=== PATIENT | female | born 1940 | race Asian ===

== ENCOUNTER 2018-03-20 05:09 | Inpatient (IN) | payer OTHER ==
[2018-03-20] MEDS ORDERED: SODIUM CHLORIDE 1,000 ML IV STA (06:05)
[2018-03-20] MEDS ORDERED: PANTOPRAZOLE SODIUM 40 MG VIAL IVPUSH ONE (06:06)
--- NOTE | 2018-03-20 06:14 | PDOC ---
Attending Attestation - Resident Resident Name: Steven Remy - ED Attending Attestation I have performed the following: I have examined & evaluated the patient, The case was reviewed & discussed with the resident, I agree w/resident's findings & plan - HPI HPI: 03/20/18 07:07 Pt comes with dark stools a couple days and epigastric pain x 2 weeks or more; NSAIDs, asa, losartan and statin. Pt is worried because she has decreased appetite and she feels weak. PMD Dr. Macdonald ([facility]) - Physicial Exam PE: 03/20/18 07:08 Agree with exam of resident. Pt is warm to touch, but not febrile. Abd NT ND. no flank pain. Pt appears pale. Neurologically intact. - Medical Decision Making 03/20/18 07:09 Pt will be signed out to the day team. She will be admitted for inpatient endoscopy; as she lives alone and cannot go home with weakness, GI bleed and inability to tolerate food.
[2018-03-20] MEDS ORDERED: PANTOPRAZOLE SODIUM 40 MG/100 ML BAG IVPB ONE (06:18)
--- NOTE | 2018-03-20 06:22 | PDOC ---
History of Present Illness - General Stated Complaint: BLOOD IN STOOL Time Seen by Provider: 03/20/18 05:58 History Source: Patient Exam Limitations: No Limitations - History of Present Illness Initial Comments: 03/20/18 06:18 Patient is a 77F with history of htn and osteoarthritis here today complaining of two days of dark tarry stools that she is concerned is a GI bleed. Patient states that she's having dark tarry stools. Takes meloxicam once or twice per day for OA. Patient states that she has had associated epigastric abdominal pain. Denies fevers, chills, nausea, vomiting. Endorses feeling weak, diaphoretic, and dizzy. Denies chest pain, endorses shortness of breath. Past History - Past Medical History Allergies/Adverse Reactions: Allergies Allergy/AdvReac Type Severity Reaction Status Date / Time No Known Allergies Allergy Verified 03/20/18 06:25 Home Medications: Ambulatory Orders Acetaminophen 325 mg PO PRN PRN 03/20/18 Aspirin [ASA -] 81 mg PO DAILY 03/20/18 Losartan Potassium 50 mg PO DAILY 03/20/18 Meloxicam 7.5 mg PO DAILY PRN 03/20/18 Rosuvastatin Calcium [Crestor] 5 mg PO DAILY 03/20/18 Review of Systems - Review of Systems Comments:: 03/20/18 06:19 GENERAL/CONSTITUTIONAL: No fever or chills. +weakness. HEAD, EYES, EARS, NOSE AND THROAT: No change in vision. No sore throat. CARDIOVASCULAR: No chest pain +shortness of breath RESPIRATORY: No cough, wheezing, or hemoptysis. GASTROINTESTINAL: No nausea, vomiting, +diarrhea GENITOURINARY: No dysuria, frequency, or change in urination. MUSCULOSKELETAL: No neck or back pain. SKIN: No rash NEUROLOGIC: No headache, vertigo, loss of consciousness, or change in strength/ sensation. ENDOCRINE: No increased thirst. No abnormal weight change HEMATOLOGIC/LYMPHATIC: No anemia, easy bleeding, or history of blood clots. ALLERGIC/IMMUNOLOGIC: No hives or skin allergy. *Physical Exam - Physical Exam Comments: 03/20/18 06:20 GENERAL: Awake, alert, and fully oriented, in no acute distress RECTAL: Normal tone, dark stool concerning for melena HEAD: No signs of trauma, normocephalic, atraumatic EYES: PERRLA, EOMI, sclera anicteric, conjunctiva clear ENT: Auricles normal inspection, hearing grossly normal, nares patent, oropharynx clear without exudates. Moist mucosa NECK: Normal ROM, supple, no lymphadenopathy, JVD, or masses LUNGS: No distress, speaks full sentences, clear to auscultation bilaterally HEART: Regular rate and rhythm, normal S1 and S2, no murmurs, rubs or gallops, peripheral pulses normal and equal bilaterally. ABDOMEN: Soft, nontender, normoactive bowel sounds. No guarding, no rebound. No masses EXTREMITIES: Normal inspection, Normal range of motion, no edema. No clubbing or cyanosis. NEUROLOGICAL: Cranial nerves II through XII grossly intact. Normal speech, no focal sensorimotor deficits SKIN: Warm, Dry, normal turgor, no rashes or lesions noted. ED Treatment Course - LABORATORY CBC & Chemistry Diagram: 03/22/18 06:00 03/22/18 06:00 - RADIOLOGY Radiology Studies Ordered: Category Date Time Status CHEST X-RAY PORTABLE* [RAD] Stat Radiology 03/20/18 06:06 Ordered Medical Decision Making - Medical Decision Making 03/20/18 06:20 Patient is 77F here today with likely GI bleed, likely 2/2 NSAID use. DDx includes, but is not limited to: anemia, gi bleed, acs, pneumonia. Will workup with cbc, cmp, pt/inr, type and screen. Will treat empirically with protonix and fluids. 03/20/18 06:56 Stool for occult blood positive. Labs drawn, protonix and fluids given. Pending labs, patient will require admission for GI bleed. Signed out to oncoming resident. *DC/Admit/Observation/Transfer Diagnosis at time of Disposition: GI bleed - Discharge Dispostion Condition at time of disposition: Stable - Referrals - Patient Instructions - Post Discharge Activity
[2018-03-20 06:55] LABS: BASO % 0.2 % (0-2.0); EOS % 0.1 % (0-4.5); HEMATOCRIT 30.3 % (32.4-45.2); HEMOGLOBIN 10.4 GM/dL (10.7-15.3); LYMPH % 4.8 % (8-40); MCH 31.5 pg (25.7-33.7); MCHC 34.1 g/dl (32.0-36.0); MEAN CELL VOLUME 92.4 fl (80-96); MEAN PLT VOLUME 7.6 fl (7.5-11.1); MONO % 3.5 % (3.8-10.2); NEUT % 91.4 % (42.8-82.8); PLATELET COUNT 251 K/MM3 (134-434); RBC 3.28 M/mm3 (3.60-5.2); RDW 12.7 % (11.6-15.6); WHITE BLOOD COUNT 13.1 K/mm3 (4.0-10.0)
[2018-03-20 07:12] LABS: INR 1.12 (0.83-1.09); PROTHROMBIN TIME (PATIENT) 13.2 SEC (9.7-13.0)
--- NOTE | 2018-03-20 07:15 | PDOC ---
*Physical Exam - Vital Signs Last Vital Signs Temp Pulse Resp BP Pulse Ox 97.6 F 99 H 17 161/56 L 99 03/20/18 05:09 03/20/18 05:09 03/20/18 05:09 03/20/18 05:09 03/20/18 05:09 - Physical Exam Comments: 03/20/18 14:34 GENERAL: Awake, alert, and fully oriented, in no acute distress HEAD: No signs of trauma, normocephalic, atraumatic EYES: EOMI, sclera anicteric, conjunctiva clear ENT: oropharynx clear without exudates. Moist mucosa NECK: Normal ROM, supple LUNGS: No distress, speaks full sentences, clear to auscultation bilaterally HEART: Regular rate and rhythm, normal S1 and S2, no murmurs, rubs or gallops, peripheral pulses normal and equal bilaterally. ABDOMEN: Soft, nontender, normoactive bowel sounds. No guarding, no rebound. No masses EXTREMITIES : Normal inspection, Normal range of motion, no edema. No clubbing or cyanosis. NEUROLOGICAL: Cranial nerves II through XII grossly intact. Normal speech, baseline gait w/ walker, no focal sensorimotor deficits SKIN: Warm, Dry, normal turgor, no rashes or lesions noted ED Treatment Course - LABORATORY CBC & Chemistry Diagram: 03/20/18 12:12 03/20/18 06:35 - ADDITIONAL ORDERS Additional order review: Laboratory Results 03/20/18 03/20/18 06:35 06:10 PT with INR 13.20 H INR 1.12 H Stool Occult Blood Positive 03/20/18 06:35 RBC 3.28 L MCV 92.4 MCHC 34.1 RDW 12.7 MPV 7.6 Neutrophils % 91.4 H D Lymphocytes % 4.8 L D Monocytes % 3.5 L Eosinophils % 0.1 D Basophils % 0.2 - Medications Given in the ED: ED Medications Discontinued Medications Generic Name Dose Route Start Last Admin Trade Name Freq PRN Reason Stop Dose Admin Sodium Chloride 1,000 mls @ 1,000 mls/hr 03/20/18 06:05 03/20/18 06:30 Normal Saline - IV 03/20/18 07:04 1,000 mls/hr ASDIR STA Administration Pantoprazole Sodium 40 mg 03/20/18 06:06 03/20/18 06:30 Protonix Iv IVPUSH 03/20/18 06:07 40 mg ONCE ONE Administration Medical Decision Making - Medical Decision Making 03/20/18 07:14 Patient signed out by resident Dr. Remy. In short patient is a 77 year old complaining of dark tarry stools with epigastric abdominal pain, with positive stool heme occult. ED Course Hb 10.4 Baseline Hb is 13 JAC, elevated BUN, Cr, prerenal. Patient will need admission for EGD and observation. 03/20/18 09:27 PCP contacted would like Pia, D51/[id number], Abd+Pelvis CT pending repeat cbc Hb 9.8 continue to trend Patient admitted to medicine for further workup and evaluation *DC/Admit/Observation/Transfer Diagnosis at time of Disposition: GI bleed - Discharge Dispostion Condition at time of disposition: Stable Decision to Admit order: Yes - Referrals - Patient Instructions - Post Discharge Activity
[2018-03-20 07:24] LABS: ALBUMIN 3.2 g/dl (3.4-5.0); ALK PHOS 73 U/L (45-117); ANION GAP 12 MMOL/L (8-16); BILIRUBIN,TOTAL 0.2 mg/dL (0.2-1); BLOOD UREA NITROGEN 66 mg/dL (7-18); CALCIUM 8.2 mg/dL (8.5-10.1); CHLORIDE 101 mmol/L (98-107); CO2 21 mmol/L (21-32); CREATININE 1.1 mg/dL (0.55-1.3); GLUCOSE,RANDOM 118 mg/dL (74-106); MAGNESIUM 2.1 mg/dL (1.8-2.4); POTASSIUM 4.6 mmol/L (3.5-5.1); SGOT/AST 12 U/L (15-37); SGPT/ALT 18 U/L (13-61); SODIUM 134 mmol/L (136-145); TOT PROT 6.2 g/dl (6.4-8.2)
[2018-03-20 12:00] LABS: ANISOCYTOSIS 0; MACROCYTOSIS 0; OVALOCYTE 1+; PLATELET ESTIMATE NORMAL
[2018-03-20] MEDS ORDERED: SODIUM CHLORIDE 1,000 ML IV SCH (12:30)
--- NOTE | 2018-03-20 12:38 | EKG ---
Test Reason : Blood Pressure : / mmHG Vent. Rate : 098 BPM Atrial Rate : 098 BPM P-R Int : 174 ms QRS Dur : 090 ms QT Int : 368 ms P-R-T Axes : 054 006 036 degrees QTc Int : 469 ms NORMAL SINUS RHYTHM LEFT ATRIAL ENLARGEMENT POSSIBLE ANTERIOR INFARCT , AGE UNDETERMINED ABNORMAL ECG WHEN COMPARED WITH ECG OF 04-JUL-2011 13:25, QT HAS LENGTHENED Confirmed by MD STEVEN, GRACE ([id number]) on 03/20/2018 12:38:29 PM Referred By: Confirmed By:GRACE HARRIS MD
[2018-03-20 12:46] LABS: BASO % 0.2 % (0-2.0); EOS % 0.1 % (0-4.5); HEMATOCRIT 28.4 % (32.4-45.2); HEMOGLOBIN 9.8 GM/dL (10.7-15.3); LYMPH % 13.2 % (8-40); MCH 31.7 pg (25.7-33.7); MCHC 34.5 g/dl (32.0-36.0); MONO % 5.4 % (3.8-10.2); NEUT % 81.1 % (42.8-82.8); PLATELET COUNT 253 K/MM3 (134-434); RBC 3.09 M/mm3 (3.60-5.2); RDW 12.6 % (11.6-15.6); WHITE BLOOD COUNT 11.8 K/mm3 (4.0-10.0)
--- NOTE | 2018-03-20 15:42 | HP ---
Admitting History and Physical - Admission Chief Complaint: Abdominal pain/Tarry Stool History of Present Illness: 77F with history of HTN, OA, Back pain,HLD,Gout, Borderline Obesity,B/L Hearing Loss here today complaining of two days of dark tarry stools that she is concerned is a GI bleed. Patient states that she's having dark tarry stools. Takes meloxicam once or twice per day for OA. Patient states that she has had associated epigastric abdominal pain. Denies fevers, chills, nausea, vomiting. Endorses feeling weak, diaphoretic, and dizzy. Denies chest pain, endorses shortness of breath. History Source: Patient - Past Medical History Cardiovascular: Yes: CAD Gastrointestinal: Yes: Diverticulosis, GI Bleed - Smoking History Smoking history: Never smoked Have you smoked in the past 12 months: No - Alcohol/Substance Use Hx Alcohol Use: No Home Medications - Allergies Allergies/Adverse Reactions: Allergies Allergy/AdvReac Type Severity Reaction Status Date / Time No Known Allergies Allergy Verified 03/20/18 06:25 - Home Medications Home Medications: Ambulatory Orders Acetaminophen 325 mg PO PRN PRN 03/20/18 Aspirin [ASA -] 81 mg PO DAILY 03/20/18 Losartan Potassium 50 mg PO DAILY 03/20/18 Meloxicam 7.5 mg PO DAILY PRN 03/20/18 Rosuvastatin Calcium [Crestor] 5 mg PO DAILY 03/20/18 Review of Systems - Review of Systems Neck: reports: No Symptoms Cardiovascular: reports: No Symptoms Respiratory: reports: No Symptoms Gastrointestinal: reports: Abdominal Pain, Rectal Bleeding Musculoskeletal: reports: Back Pain Neurological: reports: Unsteady Gait Psychiatric: reports: No Symptoms Physical Examination Vital Signs: Vital Signs Temperature 98.1 F 03/20/18 15:00 Pulse Rate 100 H 03/20/18 15:00 Respiratory Rate 18 03/20/18 15:00 Blood Pressure 145/63 03/20/18 15:00 O2 Sat by Pulse Oximetry (%) 99 03/20/18 15:00 Constitutional: Yes: Anxious Eyes: Yes: Conjunctiva Clear, EOM Intact HENT: Yes: Atraumatic, Normocephalic Neck: Yes: Supple, Trachea Midline Cardiovascular: Yes: Regular Rate and Rhythm, S1, S2 Respiratory: Yes: Regular, CTA Bilaterally Gastrointestinal: Yes: Normal Bowel Sounds, Soft Musculoskeletal: Yes: Back Pain Edema: No Labs: CBC, BMP 03/20/18 12:12 03/20/18 06:35 Problem List - Problems (1) HTN (hypertension) Code(s): I10 - ESSENTIAL (PRIMARY) HYPERTENSION (2) HLD (hyperlipidemia) Code(s): E78.5 - HYPERLIPIDEMIA, UNSPECIFIED (3) Back pain Code(s): M54.9 - DORSALGIA, UNSPECIFIED (4) Bilateral hearing loss Code(s): H91.93 - UNSPECIFIED HEARING LOSS, BILATERAL (5) GI bleed Code(s): K92.2 - GASTROINTESTINAL HEMORRHAGE, UNSPECIFIED (6) Renal failure, acute Code(s): N17.9 - ACUTE KIDNEY FAILURE, UNSPECIFIED (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 Code(s): I25.2 - OLD MYOCARDIAL INFARCTION (8) Troponin level elevated Code(s): R74.8 - ABNORMAL LEVELS OF OTHER SERUM ENZYMES Assessment/Plan (1) HTN (hypertension) Code(s): I10 - ESSENTIAL (PRIMARY) HYPERTENSION (2) HLD (hyperlipidemia) Code(s): E78.5 - HYPERLIPIDEMIA, UNSPECIFIED (3) Back pain Code(s): M54.9 - DORSALGIA, UNSPECIFIED (4) Bilateral hearing loss Code(s): H91.93 - UNSPECIFIED HEARING LOSS, BILATERAL (5) GI bleed Code(s): K92.2 - GASTROINTESTINAL HEMORRHAGE, UNSPECIFIED (6) Renal failure, acute Code(s): N17.9 - ACUTE KIDNEY FAILURE, UNSPECIFIED (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
[2018-03-20] MEDS: D5-1/2NS+10 MEQ KCL - 10 MEQ/1,000 ML INFUS.BAG IV SCH (16:51)
[2018-03-20 18:47] LABS: BASO % 0.3 % (0-2.0); EOS % 0.4 % (0-4.5); HEMATOCRIT 26.5 % (32.4-45.2); HEMOGLOBIN 9.1 GM/dL (10.7-15.3); LYMPH % 10.3 % (8-40); MCH 31.8 pg (25.7-33.7); MCHC 34.5 g/dl (32.0-36.0); MEAN CELL VOLUME 92.4 fl (80-96); MEAN PLT VOLUME 7.3 fl (7.5-11.1); MONO % 6.5 % (3.8-10.2); NEUT % 82.5 % (42.8-82.8); PLATELET COUNT 230 K/MM3 (134-434); RBC 2.87 M/mm3 (3.60-5.2); RDW 12.6 % (11.6-15.6); WHITE BLOOD COUNT 11.7 K/mm3 (4.0-10.0)
[2018-03-21] MEDS ORDERED: PANTOPRAZOLE SODIUM 40 MG/100 ML BAG IVPB ONE (00:01)
[2018-03-21] MEDS ORDERED: PANTOPRAZOLE SODIUM 40 MG VIAL ONE ×2 (01:33→10:06)
[2018-03-21] MEDS: ROSUVASTATIN CA 5 MG TABLET (FP) PO SCH ×2 (01:37→21:10)
[2018-03-21] MEDS: PANTOPRAZOLE SODIUM 40 MG VIAL IVPUSH SCH ×3 (01:37→21:10)
[2018-03-21] MEDS: metoPROLOL SUCCINATE 25 MG TAB.SR.24H (FP) PO SCH ×2 (06:00→10:11)
[2018-03-21 06:27] LABS: BASO % 0.2 % (0-2.0); EOS % 0.3 % (0-4.5); HEMATOCRIT 27.1 % (32.4-45.2); HEMOGLOBIN 8.7 GM/dL (10.7-15.3); LYMPH % 15.1 % (8-40); MCH 30.2 pg (25.7-33.7); MCHC 32.1 g/dl (32.0-36.0); MEAN CELL VOLUME 94.1 fl (80-96); MEAN PLT VOLUME 7.6 fl (7.5-11.1); MONO % 6.2 % (3.8-10.2); NEUT % 78.2 % (42.8-82.8); PLATELET COUNT 215 K/MM3 (134-434); RBC 2.88 M/mm3 (3.60-5.2); RDW 12.8 % (11.6-15.6); WHITE BLOOD COUNT 11.7 K/mm3 (4.0-10.0)
[2018-03-21 06:44] LABS: ANION GAP 8 MMOL/L (8-16); BLOOD UREA NITROGEN 36 mg/dL (7-18); CALCIUM 8.3 mg/dL (8.5-10.1); CHLORIDE 110 mmol/L (98-107); CO2 20 mmol/L (21-32); GLUCOSE,RANDOM 114 mg/dL (74-106); POTASSIUM 4.2 mmol/L (3.5-5.1); SODIUM 138 mmol/L (136-145)
--- NOTE | 2018-03-21 11:41 | CONSULT ---
Consult Consult Specialty:: Cardiology Referred by:: ED Reason for Consultation:: (+) troponin - History of Present Illness Chief Complaint: Dark stool History of Present Illness: 77 yo female CV risk factors of HTN and HPL Presented to ED with dark tarry stools found to be guiac (+) Taking Meloxicam for the past 2 months for left hip pain No prior CV history, no TX or known CAD Found to have (+) low level troponin with Hgb 8.7 (10.4) Currently she denies any CV complaints, no chest pain, tightness, dyspnea, dizziness. Started on PPI - History Source History Provided By: Patient Limitations to Obtaining History: No Limitations - Past Medical History Cardio/Vascular: Yes: CAD Gastrointestinal: Yes: Diverticulosis, GI Bleed - Alcohol/Substance Use Hx Alcohol Use: No - Smoking History Smoking history: Never smoked Have you smoked in the past 12 months: No Home Medications - Allergies Allergies/Adverse Reactions: Allergies Allergy/AdvReac Type Severity Reaction Status Date / Time No Known Allergies Allergy Verified 03/20/18 06:25 - Home Medications Home Medications: Ambulatory Orders Acetaminophen 325 mg PO PRN PRN 03/20/18 Aspirin [ASA -] 81 mg PO DAILY 03/20/18 Losartan Potassium 50 mg PO DAILY 03/20/18 Meloxicam 7.5 mg PO DAILY PRN 03/20/18 Rosuvastatin Calcium [Crestor] 5 mg PO DAILY 03/20/18 Family Disease History - Family Disease History Family History: Unremarkable Review of Systems - Review of Systems Constitutional: reports: No Symptoms Eyes: reports: No Symptoms HENT: reports: No Symptoms Neck: reports: No Symptoms Cardiovascular: reports: No Symptoms Respiratory: reports: No Symptoms Gastrointestinal: reports: Abdominal Pain Musculoskeletal: reports: No Symptoms, Muscle Weakness Neurological: reports: No Symptoms Physical Exam Vital Signs: Vital Signs Temperature 98.2 F 03/21/18 05:30 Pulse Rate 78 03/21/18 10:00 Respiratory Rate 16 03/21/18 10:00 Blood Pressure 135/69 03/21/18 10:00 O2 Sat by Pulse Oximetry (%) 99 03/21/18 10:00 Constitutional: Yes: Well Nourished, No Distress Eyes: Yes: WNL HENT: Yes: WNL Neck: Yes: WNL Cardiovascular: Yes: WNL, Regular Rate and Rhythm Respiratory: Yes: CTA Bilaterally Gastrointestinal: Yes: Normal Bowel Sounds Musculoskeletal: Yes: WNL Extremities: Yes: WNL Edema: No Labs: CBC, BMP 03/21/18 05:30 03/21/18 05:30 Imaging - Results Cat Scan: Report Reviewed (Diverticulosis) EKG: Image Reviewed (ECG on 03/20/2018 at 16:53 sinus tach at 111. No ischemic changes noted.) Assessment/Plan 77 yo F with HTN, HPL and (+) troponin in the setting of GI bleeding. 1) (+) troponin -Low level trend 0.08 to 0.13 not consistent with ACS, more consistent with Type II TX (demand related) in the setting of probable GI bleeding while on NSAIDS. Asymptomatic from CV perspective. -Would follow serial and transfuse as clinically indicated, Hgb only 8.7 now -Hold Meloxicam as likely cuplprit here, OK to continue Asa 81mg -No indication for further anticoagulation in setting of Type II TX and GI bleeding -Continue metoprolol and statin -She is stable and optimized from CV perspective to undergo GI eval (EGD/Colon) 2) HTN -Continue Metoprolol 3) HPL -Continue Crestor
--- NOTE | 2018-03-21 13:14 | PN ---
Progress Note, Physician Chief Complaint: Pt is having Drop In Hb Called Dr chavarria service GI service Transfuse One Unit Of PRBC Pt is clesred for EGD and colonoscopy History of Present Illness: Pt having Drop in Hb/Hct One unit of PRBC today spoke with Dr Herve chawla for EGD in AM - Current Medication List Current Medications: Active Medications Potassium Chloride/Dextrose/Sod Cl (D5-1/2ns+10 Meq Kcl -) 10 meq in 1,000 mls @ 60 mls/hr IV ASDIR [facility] Last Admin: 03/20/18 16:51 Dose: 60 mls/hr Metoprolol Succinate (Toprol Xl -) 25 mg PO DAILY [facility] Last Admin: 03/21/18 10:11 Dose: 25 mg Pantoprazole Sodium (Protonix Iv) 40 mg IVPUSH BID [facility] Last Admin: 03/21/18 10:11 Dose: 40 mg Rosuvastatin Calcium (Crestor -) 5 mg PO HS [facility] Last Admin: 03/21/18 01:37 Dose: 5 mg - Objective Vital Signs: Vital Signs Temperature 98.2 F 03/21/18 05:30 Pulse Rate 78 03/21/18 10:00 Respiratory Rate 16 03/21/18 10:00 Blood Pressure 135/69 03/21/18 10:00 O2 Sat by Pulse Oximetry (%) 99 03/21/18 10:00 Constitutional: Yes: Calm Eyes: Yes: Conjunctiva Clear, EOM Intact HENT: Yes: Atraumatic, Normocephalic Neck: Yes: Supple, Trachea Midline Cardiovascular: Yes: Regular Rate and Rhythm, S1, S2 Respiratory: Yes: Regular, CTA Bilaterally Gastrointestinal: Yes: Normal Bowel Sounds, Soft Musculoskeletal: Yes: Joint Stiffness Edema: No Peripheral Pulses WNL: Yes Neurological: Yes: Alert, Oriented, Cran Nerves II-XII Intact Labs: CBC, BMP 03/21/18 05:30 03/21/18 05:30 INR, PTT INR 1.12 (0.83-1.09) H 03/20/18 06:35 Problem List - Problems (1) HTN (hypertension) Code(s): I10 - ESSENTIAL (PRIMARY) HYPERTENSION (2) HLD (hyperlipidemia) Code(s): E78.5 - HYPERLIPIDEMIA, UNSPECIFIED (3) Back pain Code(s): M54.9 - DORSALGIA, UNSPECIFIED (4) Bilateral hearing loss Code(s): H91.93 - UNSPECIFIED HEARING LOSS, BILATERAL (5) GI bleed Code(s): K92.2 - GASTROINTESTINAL HEMORRHAGE, UNSPECIFIED (6) Old anterior myocardial infarction Code(s): I25.2 - OLD MYOCARDIAL INFARCTION (7) Renal failure, acute Code(s): N17.9 - ACUTE KIDNEY FAILURE, UNSPECIFIED (8) Troponin level elevated Code(s): R74.8 - ABNORMAL LEVELS OF OTHER SERUM ENZYMES Assessment/Plan (1) HTN (hypertension) Code(s): I10 - ESSENTIAL (PRIMARY) HYPERTENSION (2) HLD (hyperlipidemia) Code(s): E78.5 - HYPERLIPIDEMIA, UNSPECIFIED (3) Back pain Code(s): M54.9 - DORSALGIA, UNSPECIFIED (4) Bilateral hearing loss Code(s): H91.93 - UNSPECIFIED HEARING LOSS, BILATERAL (5) GI bleed Code(s): K92.2 - GASTROINTESTINAL HEMORRHAGE, UNSPECIFIED (6) Renal failure, acute Code(s): N17.9 - ACUTE KIDNEY FAILURE, UNSPECIFIED (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 Code(s): I25.2 - OLD MYOCARDIAL INFARCTION (8) Troponin level elevated Code(s): R74.8 - ABNORMAL LEVELS OF OTHER SERUM ENZYMES Pt had Drop in Hb/Hct Pt had one unit of prbc in view of Raised Troponin Spoke with Dr Peters Pt will have EGD
[2018-03-21] MEDS: D5-1/2NS+10 MEQ KCL - 10 MEQ/1,000 ML INFUS.BAG IV SCH ×2 (13:28→22:23)
--- NOTE | 2018-03-21 15:00 | CON.ID ---
Consult - History of Present Illness History of Present Illness: 77 y.o. female with PMH of OA on Meloxicam presents with c/o dark/black stools for the past 2 days and associated weakness and a couple of weeks of epigastric discomfort. She is alert, denies abd pain currently and has been afebrile. She denies any nausea/vomiting, fever/chills, shortness of breath, chest pain or dysuria. In the ER she was noted to have mildly elevated wbc (13K) and tachycardic but afebrile, and Hgb/Hct with decreased trend. She feels weak but has no other specific complaints. - History Source History Provided By: Patient Limitations to Obtaining History: No Limitations - Past Medical History Cardio/Vascular: Yes: CAD Gastrointestinal: Yes: Diverticulosis, GI Bleed - Alcohol/Substance Use Hx Alcohol Use: No - Smoking History Smoking history: Never smoked Have you smoked in the past 12 months: No Home Medications - Allergies Allergies/Adverse Reactions: Allergies Allergy/AdvReac Type Severity Reaction Status Date / Time No Known Allergies Allergy Verified 03/20/18 06:25 - Home Medications Home Medications: Ambulatory Orders Acetaminophen 325 mg PO PRN PRN 03/20/18 Aspirin [ASA -] 81 mg PO DAILY 03/20/18 Losartan Potassium 50 mg PO DAILY 03/20/18 Meloxicam 7.5 mg PO DAILY PRN 03/20/18 Rosuvastatin Calcium [Crestor] 5 mg PO DAILY 03/20/18 Review of Systems - Review of Systems Constitutional: reports: Weakness Eyes: reports: No Symptoms HENT: reports: No Symptoms Neck: reports: No Symptoms Cardiovascular: reports: No Symptoms Respiratory: reports: No Symptoms Gastrointestinal: reports: Melena Genitourinary: reports: No Symptoms Musculoskeletal: reports: No Symptoms Integumentary: reports: No Symptoms Neurological: reports: No Symptoms Endocrine: reports: No Symptoms Psychiatric: reports: No Symptoms Physical Exam Vital Signs: Vital Signs Temperature 98.2 F 03/21/18 05:30 Pulse Rate 78 03/21/18 10:00 Respiratory Rate 16 03/21/18 10:00 Blood Pressure 135/69 03/21/18 10:00 O2 Sat by Pulse Oximetry (%) 99 03/21/18 10:00 Constitutional: Yes: No Distress, Calm Eyes: Yes: Conjunctiva Clear HENT: Yes: Atraumatic, Normocephalic Neck: Yes: Supple Cardiovascular: Yes: Tachycardia Respiratory: Yes: CTA Bilaterally Gastrointestinal: Yes: Normal Bowel Sounds, Soft Renal/: Yes: WNL Musculoskeletal: Yes: WNL Extremities: Yes: WNL Edema: No Integumentary: Yes: WNL Neurological: Yes: Alert, Oriented, Weakness Labs: CBC, BMP 03/21/18 05:30 03/21/18 05:30 Laboratory Tests 03/20/18 03/20/18 03/20/18 06:10 06:35 06:35 WBC 13.1 H RBC 3.28 L Hgb 10.4 L Hct 30.3 L D MCV 92.4 MCH 31.5 MCHC 34.1 RDW 12.7 Plt Count 251 D MPV 7.6 Absolute Neuts (auto) 12.0 H Neutrophils % 91.4 H D Neutrophils % (Manual) 89.1 H Band Neutrophils % 0.0 Lymphocytes % 4.8 L D Lymphocytes % (Manual) 4.9 L Monocytes % 3.5 L Monocytes % (Manual) 0 L Eosinophils % 0.1 D Eosinophils % (Manual) 0.0 Basophils % 0.2 Basophils % (Manual) 0.0 Myelocytes % (Man) 0 Promyelocytes % (Man) 0 Blast Cells % (Manual) 0 Nucleated RBC % 0 Metamyelocytes 1 Hypochromia 0 Platelet Estimate Normal Polychromasia 1+ Poikilocytosis 1+ Anisocytosis 0 Microcytosis 0 Macrocytosis 0 Ovalocytes 1+ PT with INR 13.20 H INR 1.12 H Sodium Potassium Chloride Carbon Dioxide Anion Gap BUN Creatinine Creat Clearance w eGFR Random Glucose Lactic Acid Calcium Magnesium Total Bilirubin AST ALT Alkaline Phosphatase Creatine Kinase Troponin I Total Protein Albumin Stool Occult Blood Positive Blood Type Antibody Screen Crossmatch 03/20/18 03/20/18 03/20/18 06:35 06:35 09:45 WBC RBC Hgb Hct MCV MCH MCHC RDW Plt Count MPV Absolute Neuts (auto) Neutrophils % Neutrophils % (Manual) Band Neutrophils % Lymphocytes % Lymphocytes % (Manual) Monocytes % Monocytes % (Manual) Eosinophils % Eosinophils % (Manual) Basophils % Basophils % (Manual) Myelocytes % (Man) Promyelocytes % (Man) Blast Cells % (Manual) Nucleated RBC % Metamyelocytes Hypochromia Platelet Estimate Polychromasia Poikilocytosis Anisocytosis Microcytosis Macrocytosis Ovalocytes PT with INR INR Sodium 134 L Potassium 4.6 Chloride 101 Carbon Dioxide 21 Anion Gap 12 BUN 66 H Creatinine 1.1 Creat Clearance w eGFR 48.04 Random Glucose 118 H Lactic Acid Calcium 8.2 L Magnesium 2.1 Total Bilirubin 0.2 AST 12 L ALT 18 Alkaline Phosphatase 73 Creatine Kinase 60 Troponin I 0.08 H 0.13 H Total Protein 6.2 L Albumin 3.2 L Stool Occult Blood Blood Type O POSITIVE Antibody Screen Negative Crossmatch See Detail 03/20/18 03/20/18 03/20/18 11:10 12:12 15:30 WBC 11.8 H RBC 3.09 L Hgb 9.8 L Hct 28.4 L MCV 92.0 MCH 31.7 MCHC 34.5 RDW 12.6 Plt Count 253 MPV 8.0 Absolute Neuts (auto) 9.6 H Neutrophils % 81.1 Neutrophils % (Manual) Band Neutrophils % Lymphocytes % 13.2 D Lymphocytes % (Manual) Monocytes % 5.4 Monocytes % (Manual) Eosinophils % 0.1 Eosinophils % (Manual) Basophils % 0.2 Basophils % (Manual) Myelocytes % (Man) Promyelocytes % (Man) Blast Cells % (Manual) Nucleated RBC % 0 Metamyelocytes Hypochromia Platelet Estimate Polychromasia Poikilocytosis Anisocytosis Microcytosis Macrocytosis Ovalocytes PT with INR INR Sodium Potassium Chloride Carbon Dioxide Anion Gap BUN Creatinine Creat Clearance w eGFR Random Glucose Lactic Acid 1.1 Calcium Magnesium Total Bilirubin AST ALT Alkaline Phosphatase Creatine Kinase Troponin I Total Protein Albumin Stool Occult Blood Blood Type O POSITIVE Antibody Screen Crossmatch 03/20/18 03/21/18 03/21/18 18:35 05:30 05:30 WBC 11.7 H 11.7 H RBC 2.87 L 2.88 L Hgb 9.1 L 8.7 L Hct 26.5 L 27.1 L MCV 92.4 94.1 MCH 31.8 30.2 MCHC 34.5 32.1 RDW 12.6 12.8 Plt Count 230 215 MPV 7.3 L 7.6 Absolute Neuts (auto) 9.6 H 9.1 H Neutrophils % 82.5 78.2 Neutrophils % (Manual) Band Neutrophils % Lymphocytes % 10.3 D 15.1 D Lymphocytes % (Manual) Monocytes % 6.5 6.2 Monocytes % (Manual) Eosinophils % 0.4 D 0.3 Eosinophils % (Manual) Basophils % 0.3 0.2 Basophils % (Manual) Myelocytes % (Man) Promyelocytes % (Man) Blast Cells % (Manual) Nucleated RBC % 0 0 Metamyelocytes Hypochromia Platelet Estimate Polychromasia Poikilocytosis Anisocytosis Microcytosis Macrocytosis Ovalocytes PT with INR INR Sodium 138 Potassium 4.2 Chloride 110 H Carbon Dioxide 20 L Anion Gap 8 BUN 36 H Creatinine 1.0 Creat Clearance w eGFR 53.62 Random Glucose 114 H Lactic Acid Calcium 8.3 L Magnesium Total Bilirubin AST ALT Alkaline Phosphatase Creatine Kinase Troponin I Total Protein Albumin Stool Occult Blood Blood Type Antibody Screen Crossmatch Imaging - Results Cat Scan: Report Reviewed (CT Abd: diverticulosis without signs of diverticulitis) Problem List - Problems (1) GI bleed Code(s): K92.2 - GASTROINTESTINAL HEMORRHAGE, UNSPECIFIED Assessment/Plan 77 y.o. female with PMH of OA on Meloxicam presenting with c/o dark stools x 2 days and weakness. Noted to have mild leukocytosis on admission but afebrile, normal lactic acid. No other specific complaints. CT abd results reviewed Leukocytosis GI bleed Anemia JAC -- no clear indication for antibiotics at this time -- GI follow up for endoscopy -- monitor cbc, vitals closely will monitor Thank you
[2018-03-21] MEDS ORDERED: LOSARTAN POTASSIUM 50 MG TABLET (FP) PO ONE (16:15)
--- NOTE | 2018-03-21 16:28 | EKG ---
Test Reason : Blood Pressure : / mmHG Vent. Rate : 093 BPM Atrial Rate : 093 BPM P-R Int : 186 ms QRS Dur : 088 ms QT Int : 368 ms P-R-T Axes : 059 017 012 degrees QTc Int : 457 ms NORMAL SINUS RHYTHM NORMAL ECG WHEN COMPARED WITH ECG OF 20-MAR-2018 16:53, NO SIGNIFICANT CHANGE WAS FOUND Confirmed by MD STEVEN, GRACE ([id number]) on 03/21/2018 4:27:38 PM Referred By: Adan BOONE Confirmed By:GRACE HARRIS MD
[2018-03-21 16:38] VITALS: BMI 24.7
--- NOTE | 2018-03-21 16:50 | EKG ---
Test Reason : Blood Pressure : / mmHG Vent. Rate : 111 BPM Atrial Rate : 111 BPM P-R Int : 172 ms QRS Dur : 084 ms QT Int : 320 ms P-R-T Axes : 047 010 -02 degrees QTc Int : 435 ms SINUS TACHYCARDIA POSSIBLE ANTERIOR INFARCT (CITED ON OR BEFORE 20-MAR-2018) ABNORMAL ECG WHEN COMPARED WITH ECG OF 20-MAR-2018 07:24, NO SIGNIFICANT CHANGE WAS FOUND Confirmed by MD STEVEN, GRACE ([id number]) on 03/21/2018 4:50:10 PM Referred By: Confirmed By:GRACE HARRIS MD
[2018-03-22 06:43] LABS: BASO % 0.4 % (0-2.0); EOS % 1.7 % (0-4.5); HEMOGLOBIN 9.9 GM/dL (10.7-15.3); LYMPH % 27.3 % (8-40); MCH 32.2 pg (25.7-33.7); MCHC 35.3 g/dl (32.0-36.0); MEAN PLT VOLUME 7.6 fl (7.5-11.1); NEUT % 63.6 % (42.8-82.8); PLATELET COUNT 213 K/MM3 (134-434); RBC 3.08 M/mm3 (3.60-5.2); WHITE BLOOD COUNT 9.2 K/mm3 (4.0-10.0)
[2018-03-22 07:18] LABS: ANION GAP 5 MMOL/L (8-16); BLOOD UREA NITROGEN 20 mg/dL (7-18); CALCIUM 8.5 mg/dL (8.5-10.1); CHLORIDE 109 mmol/L (98-107); CO2 26 mmol/L (21-32); GLUCOSE,RANDOM 106 mg/dL (74-106); POTASSIUM 4.7 mmol/L (3.5-5.1); SODIUM 139 mmol/L (136-145)
--- NOTE | 2018-03-22 09:02 | PN ---
Progress Note, Physician Chief Complaint: gib History of Present Illness: no cp, sob, palpit, syncope - Current Medication List Current Medications: Active Medications Potassium Chloride/Dextrose/Sod Cl (D5-1/2ns+10 Meq Kcl -) 10 meq in 1,000 mls @ 60 mls/hr IV ASDIR [facility] Last Admin: 03/21/18 22:23 Dose: 60 mls/hr Losartan Potassium (Cozaar -) 50 mg PO DAILY [facility] Metoprolol Succinate (Toprol Xl -) 25 mg PO DAILY [facility] Last Admin: 03/21/18 10:11 Dose: 25 mg Pantoprazole Sodium (Protonix Iv) 40 mg IVPUSH BID [facility] Last Admin: 03/21/18 21:10 Dose: 40 mg Rosuvastatin Calcium (Crestor -) 5 mg PO HS [facility] Last Admin: 03/21/18 21:10 Dose: 5 mg - Objective Vital Signs: Vital Signs Temperature 98.0 F 03/22/18 05:55 Pulse Rate 82 03/22/18 05:55 Respiratory Rate 20 03/22/18 05:55 Blood Pressure 171/64 H 03/22/18 05:55 O2 Sat by Pulse Oximetry (%) 99 03/21/18 19:54 Constitutional: Yes: Well Nourished, No Distress, Calm Cardiovascular: Yes: Regular Rate and Rhythm, S1, S2. No: Gallop, Murmur Respiratory: Yes: Regular, CTA Bilaterally. No: Accessory Muscle Use, Rales, Wheezes Extremities: No: Cold Edema: No Neurological: Yes: Alert, Oriented Psychiatric: No: Agitated Labs: CBC, BMP 03/22/18 06:00 03/22/18 06:00 INR, PTT INR 1.12 (0.83-1.09) H 03/20/18 06:35 Assessment/Plan ECG on 03/20/2018 at 16:53 sinus tach at 111. No ischemic changes noted. tele: sinus, artifact Assessment/Plan 77 yo F with HTN, HPL and (+) troponin in the setting of GI bleeding. 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 Asymptomatic from CV perspective. -consider transfusion for hgb <7-8 -Hold NSAIDs, Meloxicam likely cuplprit here, OK to continue Asa 81mg -No indication for further anticoagulation in setting of Type II VA and GI bleeding -Continue metoprolol and statin -She is stable and optimized from CV perspective to undergo GI eval (EGD/Colon) HTN -bp up this am, awaiting today's meds -Continue Metoprolol, losartan as ordered HPL -Continue Crestor D/C TELE
--- NOTE | 2018-03-22 10:08 | PN ---
Progress Note (short form) - Note Progress Note: Brief EGD report - see paper report in chart for details Two clean based prepyloric ulcers identified Pyloric channel edema, likely secondary to PUD, unable to pass standard endoscope but pediatric scope passed with no issue Endoscopy otherwise normal Recommend Once daily PPI 40mg Avoid NSAIDs Trend hgb Advance diet as tolerated Will need GI follow up at discharge
--- NOTE | 2018-03-22 10:23 | CON.GI ---
Consult Consult Specialty:: medicine Reason for Consultation:: melena - History of Present Illness Chief Complaint: melena History of Present Illness: 77F with h/o CAD, HTN, OA, back pain, HL, gout, admitted for two days of dark tarry stools. Reported Taking meloxicam PRN for OA pain, on ASA for CAD. + epigastric discomfort and what she describes as acid. No N/V. - History Source History Provided By: Patient, Medical Record Limitations to Obtaining History: No Limitations - Past Medical History Cardio/Vascular: Yes: CAD Gastrointestinal: Yes: Diverticulosis, GI Bleed - Alcohol/Substance Use Hx Alcohol Use: No - Smoking History Smoking history: Never smoked Have you smoked in the past 12 months: No Home Medications - Allergies Allergies/Adverse Reactions: Allergies Allergy/AdvReac Type Severity Reaction Status Date / Time No Known Allergies Allergy Verified 03/20/18 06:25 - Home Medications Home Medications: Ambulatory Orders Acetaminophen 325 mg PO PRN PRN 03/20/18 Aspirin [ASA -] 81 mg PO DAILY 03/20/18 Losartan Potassium 50 mg PO DAILY 03/20/18 Meloxicam 7.5 mg PO DAILY PRN 03/20/18 Rosuvastatin Calcium [Crestor] 5 mg PO DAILY 03/20/18 Review of Systems - Review of Systems Constitutional: reports: No Symptoms Eyes: reports: No Symptoms HENT: reports: No Symptoms Neck: reports: No Symptoms Cardiovascular: reports: No Symptoms. denies: Chest Pain Respiratory: reports: No Symptoms. denies: SOB Gastrointestinal: reports: Abdominal Pain, Diarrhea, Melena Genitourinary: reports: No Symptoms Musculoskeletal: reports: Back Pain, Joint Pain Neurological: reports: No Symptoms Endocrine: reports: No Symptoms Physical Exam-GI Vital Signs: Vital Signs Temperature 97.7 F 03/22/18 09:48 Pulse Rate 69 03/22/18 10:18 Respiratory Rate 20 03/22/18 10:18 Blood Pressure 130/68 03/22/18 10:18 O2 Sat by Pulse Oximetry (%) 99 03/22/18 10:18 Constitutional: Yes: Well Nourished Eyes: Yes: WNL Neck: Yes: WNL Cardiovascular: Yes: Regular Rate and Rhythm Respiratory: Yes: CTA Bilaterally Gastrointestinal Inspection: Yes: WNL ...Auscultate: Yes: Normoactive Bowel Sounds ...Palpate: Yes: Soft, Tenderness ...Rectal Exam: Yes: Deferred Extremities: Yes: WNL Labs: CBC, BMP 03/22/18 06:00 03/22/18 06:00 INR, PTT INR 1.12 (0.83-1.09) H 03/20/18 06:35 Imaging - Results Cat Scan: Report Reviewed Assessment/Plan Melena, anemia - secondary to UGIB Now s/p EGD revealing PUD, s/p biopsies for H pylori Edematous pyloric channel traversed with pediatric scope Recommend Once daily PPI 40mg Trend hgb daily Advance diet Follow up biopsies, treat H. pylori if positive Needs GI follow up on discharge
[2018-03-22] MEDS: PANTOPRAZOLE SODIUM 40 MG VIAL IVPUSH SCH ×2 (11:12→21:30)
[2018-03-22] MEDS: LOSARTAN POTASSIUM 50 MG TABLET (FP) PO SCH (11:12)
[2018-03-22] MEDS: metoPROLOL SUCCINATE 25 MG TAB.SR.24H (FP) PO SCH (11:12)
--- NOTE | 2018-03-22 14:43 | PN ---
Progress Note, Physician History of Present Illness: stable had biopsy done - Current Medication List Current Medications: Active Medications Potassium Chloride/Dextrose/Sod Cl (D5-1/2ns+10 Meq Kcl -) 10 meq in 1,000 mls @ 60 mls/hr IV ASDIR [facility] Last Admin: 03/21/18 22:23 Dose: 60 mls/hr Losartan Potassium (Cozaar -) 50 mg PO DAILY [facility] Last Admin: 03/22/18 11:12 Dose: 50 mg Metoprolol Succinate (Toprol Xl -) 25 mg PO DAILY [facility] Last Admin: 03/22/18 11:12 Dose: 25 mg Pantoprazole Sodium (Protonix Iv) 40 mg IVPUSH BID [facility] Last Admin: 03/22/18 11:12 Dose: 40 mg Rosuvastatin Calcium (Crestor -) 5 mg PO HS [facility] Last Admin: 03/21/18 21:10 Dose: 5 mg - Objective Vital Signs: Vital Signs Temperature 97.8 F 03/22/18 11:10 Pulse Rate 74 03/22/18 11:10 Respiratory Rate 18 03/22/18 11:10 Blood Pressure 148/70 03/22/18 11:10 O2 Sat by Pulse Oximetry (%) 100 03/22/18 10:25 Constitutional: Yes: No Distress, Calm Cardiovascular: Yes: Regular Rate and Rhythm Respiratory: Yes: Regular, CTA Bilaterally Gastrointestinal: Yes: Normal Bowel Sounds, Soft Musculoskeletal: Yes: WNL Extremities: Yes: WNL Neurological: Yes: Alert, Oriented Psychiatric: Yes: Alert, Oriented Labs: CBC, BMP 03/22/18 06:00 03/22/18 06:00 INR, PTT INR 1.12 (0.83-1.09) H 03/20/18 06:35 Assessment/Plan Problem List - Problems (1) GI bleed Code(s): K92.2 - GASTROINTESTINAL HEMORRHAGE, UNSPECIFIED Assessment/Plan 77 y.o. female with PMH of OA on Meloxicam presenting with c/o dark stools x 2 days and weakness. Noted to have mild leukocytosis on admission but afebrile, normal lactic acid. No other specific complaints. CT abd results reviewed Leukocytosis GI bleed Anemia JAC continue to monitor await for biopsy result rest as per the team patient stable
--- NOTE | 2018-03-22 17:43 | PN ---
Progress Note, Physician Chief Complaint: Pt had One Unit of PRBC Pt had EGD- Noted History of Present Illness: Pt had EGD Prepyloric Ulcers No Active Bleeding now - Current Medication List Current Medications: Active Medications Potassium Chloride/Dextrose/Sod Cl (D5-1/2ns+10 Meq Kcl -) 10 meq in 1,000 mls @ 60 mls/hr IV ASDIR [facility] Last Admin: 03/21/18 22:23 Dose: 60 mls/hr Losartan Potassium (Cozaar -) 50 mg PO DAILY [facility] Last Admin: 03/22/18 11:12 Dose: 50 mg Metoprolol Succinate (Toprol Xl -) 50 mg PO DAILY [facility] Pantoprazole Sodium (Protonix Iv) 40 mg IVPUSH BID [facility] Last Admin: 03/22/18 11:12 Dose: 40 mg Rosuvastatin Calcium (Crestor -) 5 mg PO HS [facility] Last Admin: 03/21/18 21:10 Dose: 5 mg - Objective Vital Signs: Vital Signs Temperature 98.0 F 03/22/18 15:32 Pulse Rate 76 03/22/18 15:32 Respiratory Rate 18 03/22/18 15:32 Blood Pressure 139/72 03/22/18 15:32 O2 Sat by Pulse Oximetry (%) 100 03/22/18 10:25 Constitutional: Yes: Calm Eyes: Yes: Conjunctiva Clear, EOM Intact HENT: Yes: Atraumatic, Normocephalic Neck: Yes: Supple, Trachea Midline Cardiovascular: Yes: Regular Rate and Rhythm, S1, S2 Respiratory: Yes: Regular, CTA Bilaterally Gastrointestinal: Yes: Normal Bowel Sounds, Soft Musculoskeletal: Yes: Joint Stiffness Edema: No Peripheral Pulses WNL: Yes Neurological: Yes: Alert, Oriented, Cran Nerves II-XII Intact Labs: CBC, BMP 03/22/18 06:00 03/22/18 06:00 INR, PTT INR 1.12 (0.83-1.09) H 03/20/18 06:35 Problem List - Problems (1) HTN (hypertension) Code(s): I10 - ESSENTIAL (PRIMARY) HYPERTENSION (2) HLD (hyperlipidemia) Code(s): E78.5 - HYPERLIPIDEMIA, UNSPECIFIED (3) Back pain Code(s): M54.9 - DORSALGIA, UNSPECIFIED (4) Bilateral hearing loss Code(s): H91.93 - UNSPECIFIED HEARING LOSS, BILATERAL (5) GI bleed Code(s): K92.2 - GASTROINTESTINAL HEMORRHAGE, UNSPECIFIED (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
[2018-03-22] MEDS: ROSUVASTATIN CA 5 MG TABLET (FP) PO SCH (21:30)
[2018-03-23] MEDS: PANTOPRAZOLE SODIUM 40 MG VIAL IVPUSH SCH (09:23)
[2018-03-23] MEDS: LOSARTAN POTASSIUM 50 MG TABLET (FP) PO SCH (09:23)
--- NOTE | 2018-03-23 11:26 | PATH ---
Surgical Pathology Report Patient Name: DAQUAN WALTER [facility]. Rec. #: [id number] /Age/Gender: 1940 (Age: 77) / F Account: [id number] Location: [address] [place], [place] [address]S/AD Taken: 03/22/2018 Received: 03/22/2018 Reported: 03/23/2018 Physicians: MD Dea Francisco M.D. Specimen(s) Received BX STOMACH Clinical History Anemia, guaiac positive Postoperative diagnosis: Peptic ulcer disease Final Diagnosis STOMACH, BIOPSY: GASTRIC BODY MUCOSA WITH MODERATE TO SEVERE CHRONIC ACTIVE GASTRITIS AND FOCAL INTESTINAL METAPLASIA. IMMUNOHISTOCHEMICAL STAIN FOR H. PYLORI IS POSITIVE (RARE). Electronically Signed Lazara Warren M.D. Gross Description Received in formalin, labeled "stomach" are 4 ramos, irregular portions of soft tissue ranging from 0.2-0.7 cm. in greatest dimension. The specimens are submitted in toto in one cassette. /03/22/201803/22/2018
--- NOTE | 2018-03-23 14:59 | PN ---
Progress Note, Physician - Current Medication List Current Medications: Active Medications Losartan Potassium (Cozaar -) 50 mg PO DAILY [facility] Last Admin: 03/23/18 09:23 Dose: 50 mg Metoprolol Succinate (Toprol Xl -) 50 mg PO DAILY [facility] Last Admin: 03/23/18 09:23 Dose: 50 mg Pantoprazole Sodium (Protonix Iv) 40 mg IVPUSH BID [facility] Last Admin: 03/23/18 09:23 Dose: 40 mg Rosuvastatin Calcium (Crestor -) 5 mg PO HS [facility] Last Admin: 03/22/18 21:30 Dose: 5 mg - Objective Vital Signs: Vital Signs Temperature 98.2 F 03/23/18 05:00 Pulse Rate 97 H 03/23/18 05:00 Respiratory Rate 18 03/23/18 05:00 Blood Pressure 149/69 03/23/18 05:00 O2 Sat by Pulse Oximetry (%) 100 03/22/18 10:25 Labs: CBC, BMP 03/22/18 06:00 03/22/18 06:00 INR, PTT INR 1.12 (0.83-1.09) H 03/20/18 06:35
--- NOTE | 2018-03-23 15:23 | CON.ORTH ---
Consult Reason for Consultation:: left hip pain - Past Medical History Cardio/Vascular: Yes: CAD Gastrointestinal: Yes: Diverticulosis, GI Bleed - Alcohol/Substance Use Hx Alcohol Use: No - Smoking History Smoking history: Never smoked Have you smoked in the past 12 months: No Home Medications - Allergies Allergies/Adverse Reactions: Allergies Allergy/AdvReac Type Severity Reaction Status Date / Time No Known Allergies Allergy Verified 03/20/18 06:25 - Home Medications Home Medications: Ambulatory Orders Acetaminophen 325 mg PO PRN PRN 03/20/18 Aspirin [ASA -] 81 mg PO DAILY 03/20/18 Losartan Potassium 50 mg PO DAILY 03/20/18 Meloxicam 7.5 mg PO DAILY PRN 03/20/18 Rosuvastatin Calcium [Crestor] 5 mg PO DAILY 03/20/18 Physical Exam for Ortho Vital Signs: Vital Signs Temperature 98.2 F 03/23/18 05:00 Pulse Rate 97 H 03/23/18 05:00 Respiratory Rate 18 03/23/18 05:00 Blood Pressure 149/69 03/23/18 05:00 O2 Sat by Pulse Oximetry (%) 100 03/22/18 10:25 Labs: CBC, BMP 03/22/18 06:00 03/22/18 06:00 INR, PTT INR 1.12 (0.83-1.09) H 03/20/18 06:35 - Lower Extremity Hip: Yes: Left, Decreased ROM, Leg Shortened, Pain, Other (nvi) Imaging - Results X-ray: Report Reviewed, Image Reviewed Assessment/Plan 77F with history of HTN, OA, Back pain,HLD,Gout, Borderline Obesity,B/L Hearing Loss admitted for GI bleed. c/o pain in left hip that has been worsening for the past year. She denies any new injury/trauma. a/p- left hip severe djd, multi-level LS spine DDD Risks and benefits were d/w pt in detail Recommend left THR, at this time pt does not want surgery PT, wbat pain control f/u as outpt as needed d/w Dr. [place] re-consult prn
--- NOTE | 2018-03-23 16:02 | PN ---
GI Progress Note Subjective: No acute events No abdominal pain Dark BM's improving Biopsies + for h. pylori - Objective Vital Signs: Vital Signs Temperature 97.8 F 03/23/18 13:00 Pulse Rate 70 03/23/18 13:00 Respiratory Rate 18 03/23/18 13:00 Blood Pressure 143/55 L 03/23/18 13:00 O2 Sat by Pulse Oximetry (%) 100 03/22/18 10:25 Constitutional: Calm Eyes: No: Sclera Icterus Neck: Yes: Trachea Midline Cardiovascular: Yes: Regular Rate and Rhythm Respiratory: Yes: CTA Bilaterally Gastrointestinal Inspection: No: Distention ...Auscultate: Yes: Normoactive Bowel Sounds ...Palpate: No: Hepatomegaly, Splenomegaly, Tenderness ...Percussion: No: Tympanitic Edema: No (No LE edema) Neurological: Yes: Alert Labs: CBC, BMP 03/22/18 06:00 03/22/18 06:00 INR, PTT INR 1.12 (0.83-1.09) H 03/20/18 06:35 Problem List - Problems (1) GI bleed Assessment/Plan: 2 prepyloric channel ulcers noted on EGD yesterday. Likely NSAID induced in background of h. pylori infection Advised: Avoidance of NSAIDs Protonix 20mg PO BID along with therapy for H. pylori. QTc was elevated on previous EKG and now borderline Will Need H. Pylori rx: given prolonged QTc, will likely need to avoid clarithromycin therapy. Bismuth quadruple therapy can be utilized (PPI, bismuth , TCN, flagyl) .Given the quantity of pills required, this may be easier to initiate as an outpatient using the combination pill Pylera as opposed to each individual medication. i explained this to Amanuel. Code(s): K92.2 - GASTROINTESTINAL HEMORRHAGE, UNSPECIFIED
[2018-03-23] MEDS: ROSUVASTATIN CA 5 MG TABLET (FP) PO SCH (21:50)
--- NOTE | 2018-03-23 22:36 | PN ---
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 - Current Medication List Current Medications: Active Medications Losartan Potassium (Cozaar -) 50 mg PO DAILY [facility] Last Admin: 03/23/18 09:23 Dose: 50 mg Metoprolol Succinate (Toprol Xl -) 50 mg PO DAILY [facility] Last Admin: 03/23/18 09:23 Dose: 50 mg Pantoprazole Sodium (Protonix -) 20 mg PO BID ANASTACIO Rosuvastatin Calcium (Crestor -) 5 mg PO HS [facility] Last Admin: 03/23/18 21:50 Dose: 5 mg - Objective Vital Signs: Vital Signs Temperature 98.0 F 03/23/18 18:00 Pulse Rate 75 03/23/18 18:00 Respiratory Rate 18 03/23/18 18:00 Blood Pressure 135/60 03/23/18 18:00 O2 Sat by Pulse Oximetry (%) 100 03/22/18 10:25 Constitutional: Yes: Anxious Eyes: Yes: Conjunctiva Clear, EOM Intact HENT: Yes: Atraumatic, Normocephalic Neck: Yes: Supple, Trachea Midline Cardiovascular: Yes: Regular Rate and Rhythm, S1, S2 Respiratory: Yes: Regular, CTA Bilaterally Gastrointestinal: Yes: Normal Bowel Sounds, Soft Musculoskeletal: Yes: Joint Stiffness Edema: No Peripheral Pulses WNL: Yes Labs: CBC, BMP 03/22/18 06:00 03/22/18 06:00 INR, PTT INR 1.12 (0.83-1.09) H 03/20/18 06:35 Problem List - Problems (1) HTN (hypertension) Code(s): I10 - ESSENTIAL (PRIMARY) HYPERTENSION (2) HLD (hyperlipidemia) Code(s): E78.5 - HYPERLIPIDEMIA, UNSPECIFIED (3) Back pain Code(s): M54.9 - DORSALGIA, UNSPECIFIED (4) Bilateral hearing loss Code(s): H91.93 - UNSPECIFIED HEARING LOSS, BILATERAL (5) GI bleed Code(s): K92.2 - GASTROINTESTINAL HEMORRHAGE, UNSPECIFIED (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 Assessment/Plan (1) HTN (hypertension) Code(s): I10 - ESSENTIAL (PRIMARY) HYPERTENSION (2) HLD (hyperlipidemia) Code(s): E78.5 - HYPERLIPIDEMIA, UNSPECIFIED (3) Back pain Code(s): M54.9 - DORSALGIA, UNSPECIFIED (4) Bilateral hearing loss Code(s): H91.93 - UNSPECIFIED HEARING LOSS, BILATERAL (5) GI bleed Code(s): K92.2 - GASTROINTESTINAL HEMORRHAGE, UNSPECIFIED (6) Renal failure, acute Code(s): N17.9 - ACUTE KIDNEY FAILURE, UNSPECIFIED (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 Code(s): I25.2 - OLD MYOCARDIAL INFARCTION (8) Troponin level elevated Code(s): R74.8 - ABNORMAL LEVELS OF OTHER SERUM ENZYMES Pt is doing well H.pylori + Advance diet
--- NOTE | 2018-03-23 22:45 | DS ---
Physical Examination Vital Signs: Vital Signs Temperature 98.0 F 03/23/18 18:00 Pulse Rate 75 03/23/18 18:00 Respiratory Rate 18 03/23/18 18:00 Blood Pressure 135/60 03/23/18 18:00 O2 Sat by Pulse Oximetry (%) 100 03/22/18 10:25 Constitutional: Yes: No Distress Eyes: Yes: Conjunctiva Clear HENT: Yes: Atraumatic, Normocephalic Neck: Yes: Supple, Trachea Midline Cardiovascular: Yes: Regular Rate and Rhythm, S1, S2 Respiratory: Yes: Regular, CTA Bilaterally Gastrointestinal: Yes: Normal Bowel Sounds, Soft Musculoskeletal: Yes: Joint Stiffness, Other (Lt Hip Severe OA, DJD of spine also) Edema: No Labs: CBC, BMP 03/22/18 06:00 03/22/18 06:00 Discharge Summary Reason For Visit: GASTROINTESTINAL HEMORRHAGE Current Active Problems Back pain (Acute) Back pain (Acute) Bilateral hearing loss (Acute) Diverticulosis large intestine w/o perforation or abscess w/o bleeding (Acute) GI bleed (Acute) HLD (hyperlipidemia) (Acute) HTN (hypertension) (Acute) Old anterior myocardial infarction (Acute) Osteoarthritis (Acute) Renal failure, acute (Acute) Troponin level elevated (Acute) Procedures: Principal: Endoscopy: Prepyloric ulcers/GI Bleeding/h.Pylori+ Hospital Course: Pt had GI bleeding Had One unit of PRBC Raised Troponin Cardiac eval done Ortho consult for Severe Lt Hip OA Pt refused Surgery spoke with Nephew also Condition: Stable - Instructions Referrals: Max Owens DO [Staff Physician] - Opal Macdonald MD [Primary Care Provider] - Disposition: HOME - Home Medications Comprehensive Discharge Medication List: Ambulatory Orders Acetaminophen 325 mg PO PRN PRN 03/20/18 Aspirin [ASA -] 81 mg PO DAILY Hold for 4 weeks Losartan Potassium 50 mg PO DAILY 03/20/18 Meloxicam 7.5 mg PO DAILY Discontinue Rosuvastatin Calcium [Crestor] 5 mg PO DAILY 03/20/18 Metoprolol 50 daily New med
[2018-03-24] MEDS: LOSARTAN POTASSIUM 50 MG TABLET (FP) PO SCH (09:43)
[2018-03-24] MEDS ORDERED: PANTOPRAZOLE 20 MG TABLET (FP) PO SCH (10:00)
[2018-03-24 10:11] VITALS: BP 149/66; PULSE 89; TEMP 98.4
--- NOTE | 2018-03-24 21:05 | PN ---
Progress Note, Physician Chief Complaint: Pt is doing well Advance diet ON PPI doing well Pt will go home today History of Present Illness: Gi Bleeding from Prepyloric ulcers H.pylori+ Pt seen By ortho also Lt Hip severe OA Pt refused Surgery Degenerative Spine disease Pt is going home today - Objective Vital Signs: Vital Signs Temperature 98.4 F 03/24/18 10:00 Pulse Rate 89 03/24/18 10:00 Respiratory Rate 19 03/24/18 10:00 Blood Pressure 149/66 03/24/18 10:00 O2 Sat by Pulse Oximetry (%) 99 03/24/18 09:00 Constitutional: Yes: No Distress Eyes: Yes: Conjunctiva Clear, EOM Intact HENT: Yes: Atraumatic, Normocephalic Neck: Yes: Supple, Trachea Midline Cardiovascular: Yes: Regular Rate and Rhythm, S2, S3 Respiratory: Yes: Regular, CTA Bilaterally Gastrointestinal: Yes: Normal Bowel Sounds, Soft Musculoskeletal: Yes: Joint Stiffness Edema: No Peripheral Pulses WNL: Yes Labs: CBC, BMP 03/22/18 06:00 03/22/18 06:00 INR, PTT INR 1.12 (0.83-1.09) H 03/20/18 06:35 Problem List - Problems (1) HTN (hypertension) Code(s): I10 - ESSENTIAL (PRIMARY) HYPERTENSION (2) HLD (hyperlipidemia) Code(s): E78.5 - HYPERLIPIDEMIA, UNSPECIFIED (3) Back pain Code(s): M54.9 - DORSALGIA, UNSPECIFIED (4) Bilateral hearing loss Code(s): H91.93 - UNSPECIFIED HEARING LOSS, BILATERAL (5) GI bleed Code(s): K92.2 - GASTROINTESTINAL HEMORRHAGE, UNSPECIFIED (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 Assessment/Plan (1) HTN (hypertension) Code(s): I10 - ESSENTIAL (PRIMARY) HYPERTENSION (2) HLD (hyperlipidemia) Code(s): E78.5 - HYPERLIPIDEMIA, UNSPECIFIED (3) Back pain Code(s): M54.9 - DORSALGIA, UNSPECIFIED (4) Bilateral hearing loss Code(s): H91.93 - UNSPECIFIED HEARING LOSS, BILATERAL (5) GI bleed Code(s): K92.2 - GASTROINTESTINAL HEMORRHAGE, UNSPECIFIED (6) Renal failure, acute Code(s): N17.9 - ACUTE KIDNEY FAILURE, UNSPECIFIED (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
== END 2018-03-24 13:00 | disposition home or self-care (01) | DRG 371 ==
LOC: JER 05:09 → JERBED 13:03 → J6S 17:04 → JERBED 17:17 → J4S 03-21 15:06
PROVIDERS: ADMIT Internal Medicine; ATTEND Internal Medicine
PROC: 30233N1 Transfusion of Nonautologous Red Blood Cells into Peripheral Vein, Percutaneous Approach (ICD-10-PCS; 2018-03-21)
PROC: 0DB68ZX Excision of Stomach, Via Natural or Artificial Opening Endoscopic, Diagnostic (ICD-10-PCS; principal; 2018-03-22 09:30)
DX: A04.8 Other specified bacterial intestinal infections (principal); K25.4 Chronic or unspecified gastric ulcer with hemorrhage; I21.A1 Myocardial infarction type 2; N17.9 Acute kidney failure, unspecified; B96.81 Helicobacter pylori [H. pylori] as the cause of diseases classified elsewhere; I10 Essential (primary) hypertension; E78.5 Hyperlipidemia, unspecified; M10.9 Gout, unspecified; H91.93 Unspecified hearing loss, bilateral; I25.2 Old myocardial infarction; D64.9 Anemia, unspecified; I25.10 Atherosclerotic heart disease of native coronary artery without angina pectoris; M16.12 Unilateral primary osteoarthritis, left hip; M51.37 Other intervertebral disc degeneration, lumbosacral region
CPT/HCPCS: 36415; 36430; 36511; 71045-TC-FY; 72100-TC-FY; 73502-TC-RT; 74176-TC; 80048; 80053; 82272; 82550; 83605; 83735; 84484; 85025; 85610; 86850; 86900; 86901; 86922; 88305-TC; 93005; 93010; 93306-TC; 97116-GP; 97161-GP; 99285-25; J7030; P9038; P9058

== ENCOUNTER 2018-11-25 14:37 | Emergency (ER) | payer OTHER ==
[2018-11-25 14:57] VITALS: PULSE 71; TEMP 98.4; BMI 24.1
--- NOTE | 2018-11-25 14:57 | PDOC ---
Rapid Medical Evaluation Chief Complaint: Blood Pressure Problem Time Seen by Provider: 11/25/18 14:52 Medical Evaluation: Allergies Allergy/AdvReac Type Severity Reaction Status Date / Time No Known Allergies Allergy Verified 11/25/18 14:52 11/25/18 14:54 78 yeaR OLD femALE bib daughter evaluation for high b/p. send by ENT for evaluation. patient noted to have high reading in the office. patient denies any headache, chest pain, dizziness PMHX: HTN, Hypercholesteremia PE: patient alert ox3. P: no order from [facility]ME. patient to the ER for further management. 11/25/18 14:57 Discharge Disposition - Diagnosis HTN (hypertension) Qualifiers: Hypertension type: unspecified Qualified Code(s): I10 - Essential (primary) hypertension - Referrals - Patient Instructions - Post Discharge Activity
--- NOTE | 2018-11-25 16:48 | PDOC ---
History of Present Illness - General Chief Complaint: Blood Pressure Problem Stated Complaint: HIGH BLOOD PRESSURE Time Seen by Provider: 11/25/18 14:52 History Source: Patient Exam Limitations: No Limitations - History of Present Illness Initial Comments: 11/25/18 16:42 78 yo F with a hx of HTN, HLD, and conjunctivitis (currently on ofloxacin for 3 weeks; prednisolone; and methylprednisone) presents to the emergency department from her ENT (Dr. Hennessy) for elevated blood pressure in the office during a routine check up. Per the patient, she currently takes losartan 100 mg ( increased from 50 mg per day to 100 mg per day 09/2018) and 50 mg of metoprolol per day. She states her normal BP is 160s/70s. Currently denies the following: headaches, visual changes (has chronic visual change due to cataract right eye; denies acute vision loss), dizziness, lightheadedness, chest pain, SOB, nausea, vomiting, decreased urinary output, diarrhea, hematochezia, and palpitations. ENdorses ear pain bilaterally that has been ongoing for 2 days. Allergies: NKDA Social: Denies tobacco, alcohol, and substance abuse. Past History - Past Medical History Allergies/Adverse Reactions: Allergies Allergy/AdvReac Type Severity Reaction Status Date / Time No Known Allergies Allergy Verified 11/25/18 14:52 Home Medications: Ambulatory Orders Acetaminophen 325 mg PO PRN PRN 03/20/18 Aspirin [ASA -] 81 mg PO DAILY 03/20/18 Losartan Potassium 50 mg PO DAILY 03/20/18 Meloxicam 7.5 mg PO DAILY PRN 03/20/18 Rosuvastatin Calcium [Crestor] 5 mg PO DAILY 03/20/18 COPD: No GI Disorders: Yes (GI bleed) HTN: Yes Hypercholesterolemia: Yes - Immunization History Immunization Up to Date: Yes - Suicide/Smoking/Psychosocial Hx Smoking History: Never smoked Have you smoked in the past 12 months: No Hx Alcohol Use: No Drug/Substance Use Hx: No Substance Use Type: None Hx Substance Use Treatment: No Review of Systems - Review of Systems Able to Perform ROS?: Yes Is the patient limited Upper Sorbian proficient: No Constitutional: No: Chills, Diaphoresis, Fever, Weakness HEENTM: Yes: Tearing (current treatment for conjunctivitis), Cataracts (right eye), Ear Pain. No: Eye Pain, Nose Pain, Throat Pain, Mouth Pain Respiratory: No: Cough, Shortness of Breath, Hemoptysis Cardiac (ROS): No: Chest Pain, Lightheadedness, Palpitations, Syncope, Chest Tightness ABD/GI: No: Constipated, Diarrhea, Nausea, Rectal Bleeding, Vomiting, Tarry Stools : No: Burning, Dysuria, Hematuria Musculoskeletal: No: Back Pain, Joint Pain, Neck Pain Integumentary: No: Bruising, Erythema, Rash Neurological: No: Headache, Numbness, Tingling, Tremors Psychiatric: No: Change in Appetite Endocrine: No: Unexplained Weight Gain Hematologic/Lymphatic: No: Anemia *Physical Exam - Vital Signs Last Vital Signs Temp Pulse Resp BP Pulse Ox 98.4 F 71 18 185/57 H 96 11/25/18 14:53 11/25/18 14:53 11/25/18 14:53 11/25/18 14:53 11/25/18 14:53 - Physical Exam General Appearance: Yes: Nourished, Appropriately Dressed. No: Apparent Distress, Intoxicated HEENT: positive: EOMI, SONJA, Normal Voice, Symmetrical, Pharynx Normal, TM Dull. negative: Normal ENT Inspection, TMs Normal (scarring bilaterally. erythema in the ear canal. no effusion. no purulence drainage. bilaterally), Pale Conjunctivae, Scleral Icterus (R), Scleral Icterus (L), Muffled/Hoarse voice, Pharyngeal Erythema, Tonsillar Exudate, Tonsillar Erythema, Nasal Congestion, Rhinorrhea, Hearing Grossly Normal (decreased hearing), Excessive drooling Neck: positive: Trachea midline, Supple. negative: Tender, Lymphadenopathy (R) , Lymphadenopathy (L), Tender lateral, Tender midline Respiratory/Chest: positive: Lungs Clear, Normal Breath Sounds. negative: Chest Tender, Respiratory Distress, Accessory Muscle Use, Crackles, Rales, Rhonchi, Stridor, Wheezing, Hyperresonant Cardiovascular: positive: Regular Rhythm, Regular Rate, S1, S2. negative: Systolic Murmur Gastrointestinal/Abdominal: positive: Normal Bowel Sounds, Flat, Soft. negative : Tender, Distended, Guarding, Rebound, Tenderness Lymphatic: negative: Adenopathy Musculoskeletal: positive: Normal Inspection. negative: CVA Tenderness, Vertebral Tenderness Extremity: positive: Normal Capillary Refill, Normal Inspection, Normal Range of Motion. 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 Hennessy) for elevated blood pressure in the office during a routine check up. Initial vitals: Initial Vital Signs Temp Pulse Resp BP Pulse Ox 98.4 F 71 18 185/57 H 96 11/25/18 14:53 11/25/18 14:53 11/25/18 14:53 11/25/18 14:53 11/25/18 14:53 Work up: EKG shows NSR with TWI in V2 and TW flattening in III. Ventricular rate is 66 bpm. QTc is 431 ms. No CHELSIE or ST depressions noted. Laboratory Tests 11/25/18 11/25/18 11/25/18 17:32 17:32 17:32 WBC 8.1 RBC 3.83 Hgb 12.3 Hct 36.9 D MCV 96.4 H MCH 32.1 MCHC 33.3 RDW 12.3 Plt Count 261 D MPV 7.2 L Absolute Neuts (auto) 5.7 Neutrophils % 70.5 Lymphocytes % 20.4 D Monocytes % 7.2 Eosinophils % 1.2 Basophils % 0.7 Nucleated RBC % 0 Sodium 130 L Potassium 4.3 Chloride 95 L Carbon Dioxide 23 Anion Gap 11 BUN 17.0 Creatinine 0.8 Est GFR (CKD-EPI)AfAm 81.27 Est GFR (CKD-EPI)NonAf 70.12 Random Glucose 93 Calcium 9.2 Total Bilirubin 0.7 AST 22 ALT 22 Alkaline Phosphatase 60 Creatine Kinase 122 Troponin I < 0.02 Total Protein 6.7 Albumin 3.7 CXR negative for acute process. EKG shows NSR. TWI in V2. Right axis deviation Will discharge patient as BP has reduced to adequate levels. Dispo: Discharge 11/25/18 18:32 09/12/19 19:23 *DC/Admit/Observation/Transfer Diagnosis at time of Disposition: HTN (hypertension) Qualifiers: Hypertension type: unspecified Qualified Code(s): I10 - Essential (primary) hypertension - Discharge Dispostion Disposition: HOME Decision to Admit order: No - Referrals Referrals: Opal Macdonald MD [Primary Care Provider] - Colton Samuels MD [Staff Physician] - - Patient Instructions Printed Discharge Instructions: DI for High Blood Pressure, How to Monitor Your Blood Pressure at Home Additional Instructions: You were seen for your high blood pressure. It adequately came down with 5 mg of amlodipine. Please follow up with the it lead within 1 week after discharge. Please return to the emergency department if you have worsening symptoms or new concerning symptoms. Thank you. - Post Discharge Activity
[2018-11-25] MEDS ORDERED: SODIUM CHLORIDE 1,000 ML IV STA (16:52)
[2018-11-25] MEDS ORDERED: amLODIPine BESYLATE 5 MG TABLET (FP) PO ONE (17:26)
--- NOTE | 2018-11-25 17:37 | PDOC ---
Attending Attestation - Resident Resident Name: GeraldoSp - ED Attending Attestation I have performed the following: I have examined & evaluated the patient, The case was reviewed & discussed with the resident, I agree w/resident's findings & plan, Exceptions are as noted - HPI HPI: 11/25/18 18:13 78yo female with hx of htn who was being seen by her ENT - dr. Hennessy for [place] and ear fullness. Told no ear infection. States he checked her BP and it was 180s systolic and she was sent to the ER for further eval. Pt states she took her metoprolol and losartan this AM as normal. States baseline bp is 160s systolic. Pt denies green, numbness, weakness, no blurred vision, cp/sob. No abd pain. No n/v/d. No dysuria. No complaints other than ear fullness. - Physicial Exam PE: 11/25/18 18:17 Gen: aaox3, nad heent: PERRL, EOMI, MMM neck: supple heart: +s1s2 reg lungs: cta b/l abd: soft, nt/nd +bs ext: no c/c/e, normal muscle strength neuro: cn ii-xii grossly intact, no focal deficits, muscle strength 5/5 UE and LE, sensation intact - Medical Decision Making 11/25/18 18:18 a/p: 78yo female with elevated bp today -hx of htn, compliant with her meds, no recent dose adjustments -no complaints at this time -[place] and told she needs hearing aids -will send labs and r/o end organ damage -will give small dose norvasc -pt will need follow up with PMD -most likely dc to home after labs and ekg 11/25/18 18:20 repeat bp improved 11/25/18 19:04 trop neg feeling better cxr clear stable for dc to home and follow up tomorrow with PMD for repeat bp check Heart Score/ECG Review - ECG Intrepretation Comment:: 11/25/18 18:19 sinus at 66, nl axis, nl interval, no acute st/t wave inversions
[2018-11-25 17:44] LABS: BASO % 0.7 % (0-2.0); EOS % 1.2 % (0-4.5); HEMATOCRIT 36.9 % (32.4-45.2); HEMOGLOBIN 12.3 GM/dL (10.7-15.3); LYMPH % 20.4 % (8-40); MCH 32.1 pg (25.7-33.7); MCHC 33.3 g/dl (32.0-36.0); MEAN CELL VOLUME 96.4 fl (80-96); MEAN PLT VOLUME 7.2 fl (7.5-11.1); MONO % 7.2 % (3.8-10.2); NEUT % 70.5 % (42.8-82.8); PLATELET COUNT 261 K/MM3 (134-434); RBC 3.83 M/mm3 (3.60-5.2); RDW 12.3 % (11.6-15.6); WHITE BLOOD COUNT 8.1 K/mm3 (4.0-10.0)
[2018-11-25] MEDS ORDERED: amLODIPine BESYLATE 5 MG TABLET (FP) ONE (17:44)
[2018-11-25 17:55] VITALS: BP 171/60
[2018-11-25 18:16] LABS: ALBUMIN 3.7 g/dl (3.4-5.0); BILIRUBIN,TOTAL 0.7 mg/dL (0.2-1); CALCIUM 9.2 mg/dL (8.5-10.1); CREATININE 0.8 mg/dL (0.55-1.3); POTASSIUM 4.3 mmol/L (3.5-5.1); TOT PROT 6.7 g/dl (6.4-8.2)
--- NOTE | 2018-11-26 14:07 | EKG ---
Test Reason : Blood Pressure : / mmHG Vent. Rate : 066 BPM Atrial Rate : 066 BPM P-R Int : 188 ms QRS Dur : 086 ms QT Int : 412 ms P-R-T Axes : 053 010 027 degrees QTc Int : 431 ms NORMAL SINUS RHYTHM POOR R WAVE PROGRESSION ABNORMAL ECG WHEN COMPARED WITH ECG OF 21-MAR-2018 09:49, NO SIGNIFICANT CHANGE WAS FOUND Confirmed by VALENTINO BARBOZA MD ([id number]) on 11/26/2018 2:06:38 PM Referred By: Confirmed By:VALENTINO BARBOZA MD
== END 2018-11-25 20:22 | disposition home or self-care (01) ==
LOC: JER 14:37
DX: I10 Essential (primary) hypertension (principal); E78.5 Hyperlipidemia, unspecified
CPT/HCPCS: 36415; 71046-TC-FY; 80053; 82550; 84484; 85025; 93005; 93010; 99283-25

== ENCOUNTER 2020-08-08 16:25 | Inpatient (IN) | payer OTHER ==
[2020-08-08] MEDS ORDERED: ALBUTEROL SO4 2.5/IPRATROPIUM 0.5 INH SOL 3 ML VIAL.NEB. NEB ONE ×2 (17:34→17:51)
[2020-08-08 17:59] LABS: BASO % 0.7 % (0-2.0); EOS % 0.6 % (0-4.5); HEMATOCRIT 39.7 % (32.4-45.2); HEMOGLOBIN 13.3 GM/dL (10.7-15.3); LYMPH % 11.3 % (8-40); MCH 31.6 pg (25.7-33.7); MCHC 33.5 g/dl (32.0-36.0); MEAN CELL VOLUME 94.1 fl (80-96); MEAN PLT VOLUME 8.2 fl (7.5-11.1); MONO % 5.9 % (3.8-10.2); NEUT % 81.5 % (42.8-82.8); PLATELET COUNT 212 K/MM3 (134-434); RBC 4.22 M/mm3 (3.60-5.2); RDW 13.3 % (11.6-15.6)
[2020-08-08 18:09] LABS: EPI CELLS 12 /uL (0-25.1); HYALINE CASTS 2 /uL (0-3.1); URINE APPEARANCE CLEAR; URINE BACTERIA 13 /uL (0-1359); URINE BILIRUBIN NEGATIVE (NEGATIVE); URINE COLOR YELLOW; URINE GLUCOSE (UA) NEGATIVE (NEGATIVE); URINE KETONE NEGATIVE (NEGATIVE); URINE LEUK ESTERASE NEGATIVE (NEGATIVE); URINE NITRITE NEGATIVE (NEGATIVE); URINE PROTEIN 3+ (NEGATIVE); URINE RBC 4 /uL (0-23.9); URINE UROBILINOGEN 0.2 mg/dL (0.2-1.0); URINE WBC 18 /uL (0-25.8)
[2020-08-08 18:13] LABS: INR 0.88 (0.83-1.09); PROTHROMBIN TIME (PATIENT) 10.9 SEC (9.7-13.0)
[2020-08-08 18:15] LABS: ACTIVATED PTT 27.4 SECONDS (25.2-36.5)
[2020-08-08 18:47] LABS: CHLORIDE 94 mmol/L (98-107); SODIUM 126 mmol/L (136-145)
[2020-08-08 18:49] LABS: CALCIUM 8.3 mg/dL (8.5-10.1)
[2020-08-08 18:50] LABS: ALBUMIN 3.9 g/dl (3.4-5.0); ANION GAP 11 MMOL/L (8-16); BLOOD UREA NITROGEN 27.2 mg/dL (7-18); CO2 21 mmol/L (21-32); GLUCOSE,RANDOM 126 mg/dL (74-106); MAGNESIUM 2.3 mg/dL (1.8-2.4)
[2020-08-08 18:52] LABS: PHOSPHOROUS 3.3 mg/dL (2.5-4.9); SGPT/ALT 69 U/L (13-61)
[2020-08-08 18:53] LABS: SGOT/AST 55 U/L (15-37)
[2020-08-08 18:54] LABS: BILIRUBIN,TOTAL 0.6 mg/dL (0.2-1); TOT PROT 7.6 g/dl (6.4-8.2)
[2020-08-08 18:55] LABS: ALK PHOS 91 U/L (45-117)
[2020-08-08 18:58] LABS: N-TERMINAL BNP 1490.9 pg/ml (5-450)
[2020-08-08 21:33] LABS: BLOOD UREA NITROGEN 27.1 mg/dL (7-18); CALCIUM 8.5 mg/dL (8.5-10.1)
[2020-08-08 21:37] LABS: CREATININE 0.9 mg/dL (0.55-1.3)
[2020-08-09] MEDS ORDERED: ALBUTEROL SO4 2.5/IPRATROPIUM 0.5 INH SOL 3 ML VIAL.NEB. NEB PRN (05:43)
[2020-08-09 06:52] VITALS: BMI 27.9
[2020-08-09 07:20] LABS: BASO % 0.4 % (0-2.0); EOS % 1.1 % (0-4.5); HEMATOCRIT 37.6 % (32.4-45.2); HEMOGLOBIN 12.9 GM/dL (10.7-15.3); LYMPH % 16.4 % (8-40); MCH 32.2 pg (25.7-33.7); MCHC 34.3 g/dl (32.0-36.0); MEAN CELL VOLUME 93.9 fl (80-96); MEAN PLT VOLUME 8.3 fl (7.5-11.1); MONO % 10.2 % (3.8-10.2); NEUT % 71.9 % (42.8-82.8); PLATELET COUNT 195 K/MM3 (134-434); RDW 13.4 % (11.6-15.6); WHITE BLOOD COUNT 7.8 K/mm3 (4.0-10.0)
[2020-08-09 07:40] LABS: ALBUMIN 3.6 g/dl (3.4-5.0); BLOOD UREA NITROGEN 19.5 mg/dL (7-18); CALCIUM 8.7 mg/dL (8.5-10.1); MAGNESIUM 2.4 mg/dL (1.8-2.4)
[2020-08-09 07:43] LABS: CREATININE 0.8 mg/dL (0.55-1.3)
[2020-08-09 07:45] LABS: BILIRUBIN,TOTAL 0.9 mg/dL (0.2-1)
[2020-08-09 07:46] LABS: TOT PROT 6.8 g/dl (6.4-8.2)
[2020-08-09] MEDS ORDERED: PT OWN MED DRAWER 7, Y5N ONE ×2 (08:50→11:51)
[2020-08-09] MEDS ORDERED: PATIENT'S OWN MEDICATION (NON-FORMULARY) (Brimonidine Tartrate/Timolol [Combigan 0.2%-0.5% OU SCH (10:00)
[2020-08-09] MEDS ORDERED: amLODIPine BESYLATE 10 MG TABLET (FP) PO SCH (10:00)
[2020-08-09] MEDS: LOSARTAN POTASSIUM 50 MG TABLET PO SCH (10:22)
[2020-08-09] MEDS: FAMOTIDINE 20 MG TABLET PO SCH ×2 (10:22→23:22)
[2020-08-09] MEDS: BRIMONIDINE TARTRATE 0.2% OPHTHALMIC 5 ML BOTTLE OU SCH ×2 (10:23→21:08)
[2020-08-09] MEDS: prednisoLONE ACETATE 1% OPHTH SUSP 5 ML BOTTLE OD SCH ×2 (10:23→21:00)
[2020-08-09] MEDS: TIMOLOL 0.5% OPHTHALMIC SOL 5 ML BOTTLE OU SCH ×2 (10:23→20:50)
[2020-08-09] MEDS: MAGNESIUM OXIDE 400 MG TABLET (FP) PO SCH ×2 (13:19→23:21)
[2020-08-09] MEDS: POTASSIUM CHLORIDE TABS 10 MEQ TABLET.ER (FP) PO SCH (13:19)
[2020-08-09] MEDS: FUROSEMIDE 20 MG TABLET (FP) PO SCH (13:19)
[2020-08-09] MEDS: HEPARIN NA (PORCINE) 5,000 UNITS/ML 1ML VIAL SQ SCH ×2 (13:20→23:21)
[2020-08-09] MEDS: SPIRONOLACTONE 25 MG TABLET PO SCH ×2 (13:20→17:37)
[2020-08-09] MEDS: ROSUVASTATIN CA 5 MG TABLET (FP) PO SCH (23:21)
[2020-08-10 07:25] LABS: BASO % 0.5 % (0-2.0); EOS % 2.5 % (0-4.5); HEMATOCRIT 38.4 % (32.4-45.2); HEMOGLOBIN 13.1 GM/dL (10.7-15.3); LYMPH % 22.5 % (8-40); MCH 31.7 pg (25.7-33.7); MCHC 34.1 g/dl (32.0-36.0); MEAN CELL VOLUME 92.9 fl (80-96); MEAN PLT VOLUME 7.9 fl (7.5-11.1); MONO % 8.2 % (3.8-10.2); NEUT % 66.3 % (42.8-82.8); PLATELET COUNT 223 K/MM3 (134-434); RBC 4.13 M/mm3 (3.60-5.2); RDW 13.2 % (11.6-15.6); WHITE BLOOD COUNT 8.3 K/mm3 (4.0-10.0)
[2020-08-10 07:40] LABS: BLOOD UREA NITROGEN 16.2 mg/dL (7-18); CALCIUM 9.1 mg/dL (8.5-10.1)
[2020-08-10 07:44] LABS: CREATININE 0.8 mg/dL (0.55-1.3)
[2020-08-10] MEDS: HEPARIN NA (PORCINE) 5,000 UNITS/ML 1ML VIAL SQ SCH ×2 (09:36→22:37)
[2020-08-10] MEDS: SPIRONOLACTONE 25 MG TABLET PO SCH (09:38)
[2020-08-10] MEDS: FAMOTIDINE 20 MG TABLET PO SCH ×2 (09:38→22:37)
[2020-08-10] MEDS: POTASSIUM CHLORIDE TABS 10 MEQ TABLET.ER (FP) PO SCH (09:38)
[2020-08-10] MEDS: LOSARTAN POTASSIUM 50 MG TABLET PO SCH (09:38)
[2020-08-10] MEDS: FUROSEMIDE 20 MG TABLET (FP) PO SCH (09:38)
[2020-08-10] MEDS: MAGNESIUM OXIDE 400 MG TABLET (FP) PO SCH ×2 (09:39→22:37)
[2020-08-10] MEDS: BRIMONIDINE TARTRATE 0.2% OPHTHALMIC 5 ML BOTTLE OU SCH ×2 (09:40→22:38)
[2020-08-10] MEDS: TIMOLOL 0.5% OPHTHALMIC SOL 5 ML BOTTLE OU SCH ×2 (09:40→22:39)
[2020-08-10] MEDS: prednisoLONE ACETATE 1% OPHTH SUSP 5 ML BOTTLE OD SCH ×2 (09:40→22:38)
[2020-08-10] MEDS: ROSUVASTATIN CA 5 MG TABLET (FP) PO SCH (22:37)
[2020-08-11] MEDS: prednisoLONE ACETATE 1% OPHTH SUSP 5 ML BOTTLE OD SCH ×2 (09:26→22:44)
[2020-08-11] MEDS: BRIMONIDINE TARTRATE 0.2% OPHTHALMIC 5 ML BOTTLE OU SCH ×2 (09:27→22:44)
[2020-08-11] MEDS: TIMOLOL 0.5% OPHTHALMIC SOL 5 ML BOTTLE OU SCH ×2 (09:27→22:44)
[2020-08-11] MEDS: FAMOTIDINE 20 MG TABLET PO SCH ×2 (09:28→22:43)
[2020-08-11] MEDS: POTASSIUM CHLORIDE TABS 10 MEQ TABLET.ER (FP) PO SCH (09:28)
[2020-08-11] MEDS: HEPARIN NA (PORCINE) 5,000 UNITS/ML 1ML VIAL SQ SCH ×2 (09:29→22:44)
[2020-08-11] MEDS: FUROSEMIDE 20 MG TABLET (FP) PO SCH (09:29)
[2020-08-11] MEDS: SPIRONOLACTONE 25 MG TABLET PO SCH (09:29)
[2020-08-11] MEDS: LOSARTAN POTASSIUM 50 MG TABLET PO SCH (09:29)
[2020-08-11] MEDS: MAGNESIUM OXIDE 400 MG TABLET (FP) PO SCH ×2 (09:29→22:43)
[2020-08-11] MEDS: amLODIPine BESYLATE 5 MG TABLET (FP) PO SCH (22:43)
[2020-08-11] MEDS: ROSUVASTATIN CA 5 MG TABLET (FP) PO SCH (22:43)
[2020-08-12] MEDS: LOSARTAN POTASSIUM 50 MG TABLET PO SCH (09:52)
[2020-08-12] MEDS: FUROSEMIDE 20 MG TABLET (FP) PO SCH (09:52)
[2020-08-12] MEDS: SPIRONOLACTONE 25 MG TABLET PO SCH (09:52)
[2020-08-12] MEDS: HEPARIN NA (PORCINE) 5,000 UNITS/ML 1ML VIAL SQ SCH (09:52)
[2020-08-12] MEDS: FAMOTIDINE 20 MG TABLET PO SCH (09:52)
[2020-08-12] MEDS: amLODIPine BESYLATE 5 MG TABLET (FP) PO SCH (09:52)
[2020-08-12] MEDS: POTASSIUM CHLORIDE TABS 10 MEQ TABLET.ER (FP) PO SCH (09:52)
[2020-08-12] MEDS: prednisoLONE ACETATE 1% OPHTH SUSP 5 ML BOTTLE OD SCH (09:52)
[2020-08-12] MEDS: MAGNESIUM OXIDE 400 MG TABLET (FP) PO SCH (09:52)
[2020-08-12] MEDS: TIMOLOL 0.5% OPHTHALMIC SOL 5 ML BOTTLE OU SCH (09:53)
[2020-08-12] MEDS: BRIMONIDINE TARTRATE 0.2% OPHTHALMIC 5 ML BOTTLE OU SCH (09:54)
[2020-08-12 12:48] VITALS: BP 137/58; PULSE 60; TEMP 97.8
== END 2020-08-12 12:57 | disposition home or self-care (01) | DRG 291 ==
LOC: JER 16:25 → JERBED 18:53 → J4W 08-09 04:24
PROVIDERS: ADMIT Internal Medicine; ATTEND Internal Medicine
DX: I11.0 Hypertensive heart disease with heart failure (principal); I50.31 Acute diastolic (congestive) heart failure; E87.1 Hypo-osmolality and hyponatremia; E78.5 Hyperlipidemia, unspecified; M54.9 Dorsalgia, unspecified; M10.9 Gout, unspecified; I25.10 Atherosclerotic heart disease of native coronary artery without angina pectoris; K57.90 Diverticulosis of intestine, part unspecified, without perforation or abscess without bleeding; H91.93 Unspecified hearing loss, bilateral; M19.90 Unspecified osteoarthritis, unspecified site; I25.2 Old myocardial infarction
CPT/HCPCS: 36415; 71045-TC-FY; 71275-TC; 80048; 80053; 81003; 82436; 82550; 83735; 83880; 83930; 83935; 84100; 84133; 84300; 84443; 84484; 85025; 85379; 85610; 85730; 87086; 93005; 93010; 93306-TC; 97116-GP; 97161-GP; 99285-25; C9803; J1644; Q9967; U0003; U0005

== ENCOUNTER 2021-05-18 20:27 | Inpatient (IN) | payer OTHER ==
[2021-05-18] MEDS ORDERED: ACETAMINOPHEN 1000 MG/100 ML BAG IVPB ONE (21:27)
[2021-05-18] MEDS ORDERED: ONDANSETRON 4 MG/2 ML VIAL IVPUSH ONE (21:27)
[2021-05-18] MEDS ORDERED: ONDANSETRON 4 MG/2 ML VIAL ONE (21:42)
[2021-05-18] MEDS ORDERED: ACETAMINOPHEN INJECTION 100 ML IVPB ONE (21:42)
[2021-05-18 22:28] LABS: BASO % 0.2 % (0-2.0); EOS % 0.1 % (0-4.5); HEMATOCRIT 35.3 % (32.4-45.2); HEMOGLOBIN 12.5 GM/dL (10.7-15.3); LYMPH % 6.9 % (8-40); MCH 31.9 pg (25.7-33.7); MCHC 35.4 g/dl (32.0-36.0); MEAN PLT VOLUME 7.2 fl (7.5-11.1); MONO % 4.9 % (3.8-10.2); NEUT % 87.9 % (42.8-82.8); PLATELET COUNT 248 10^3/uL (134-434); RBC 3.92 M/mm3 (3.60-5.2)
[2021-05-18 22:37] LABS: INR 1.07 (0.83-1.09); PROTHROMBIN TIME (PATIENT) 12.3 SEC (9.7-13.0)
[2021-05-18 22:40] LABS: ACTIVATED PTT 29.5 SECONDS (25.2-36.5)
[2021-05-18 22:41] LABS: CHLORIDE 79 mmol/L (98-107)
[2021-05-18 22:43] LABS: CALCIUM 8.5 mg/dL (8.5-10.1)
[2021-05-18 22:44] LABS: ALBUMIN 3.7 g/dl (3.4-5.0); BLOOD UREA NITROGEN 22.9 mg/dL (7-18); CO2 24 mmol/L (21-32); GLUCOSE,RANDOM 133 mg/dL (74-106); LIPASE 407 U/L (73-393); MAGNESIUM 2.2 mg/dL (1.8-2.4)
[2021-05-18 22:46] LABS: PHOSPHOROUS 3.5 mg/dL (2.5-4.9)
[2021-05-18 22:47] LABS: SGOT/AST 25 U/L (15-37); SGPT/ALT 20 U/L (13-61)
[2021-05-18 22:48] LABS: BILIRUBIN,TOTAL 0.6 mg/dL (0.2-1); TOT PROT 6.7 g/dl (6.4-8.2)
[2021-05-18 22:49] LABS: ALK PHOS 82 U/L (45-117)
[2021-05-18 22:52] LABS: N-TERMINAL BNP 1159.2 pg/ml (5-450)
[2021-05-18 23:05] LABS: ANION GAP 10 MMOL/L (8-16); SODIUM 112 mmol/L (136-145)
[2021-05-18] MEDS ORDERED: SODIUM CHLORIDE 0.9% 500 ML INFUS.BAG IV ONE (23:17)
[2021-05-18 23:28] LABS: EPI CELLS 6 /uL (0-25.1); HYALINE CASTS 1 /uL (0-3.1); PH,URINE 6.5 (5.0-8.0); URINE APPEARANCE CLEAR; URINE BACTERIA 13 /uL (0-1359); URINE BILIRUBIN NEGATIVE (NEGATIVE); URINE COLOR YELLOW; URINE GLUCOSE (UA) NEGATIVE (NEGATIVE); URINE KETONE TRACE (NEGATIVE); URINE LEUK ESTERASE NEGATIVE (NEGATIVE); URINE NITRITE NEGATIVE (NEGATIVE); URINE PROTEIN 4+ (NEGATIVE); URINE RBC 30 /uL (0-23.9); URINE UROBILINOGEN 0.2 mg/dL (0.2-1.0); URINE WBC 8 /uL (0-25.8)
[2021-05-18 23:47] LABS: URIC ACID 4.7 mg/dL (2.6-7.2)
[2021-05-19 02:15] LABS: CHLORIDE 82 mmol/L (98-107)
[2021-05-19 02:16] LABS: CALCIUM 8.3 mg/dL (8.5-10.1)
[2021-05-19 02:17] LABS: CO2 22 mmol/L (21-32); GLUCOSE,RANDOM 114 mg/dL (74-106)
[2021-05-19 02:20] LABS: CREATININE 0.9 mg/dL (0.55-1.3)
[2021-05-19 02:23] LABS: ANION GAP 10 MMOL/L (8-16); SODIUM 115 mmol/L (136-145)
[2021-05-19] MEDS ORDERED: INFUS IV ONE (03:03)
[2021-05-19] MEDS ORDERED: SODIUM CHLORIDE 3% IV ONE (03:03)
[2021-05-19] MEDS ORDERED: PIPERACILLIN/TAZOB 3.375 GM 3.375 GM in DEXTROSE 5%-WATER - 50 ML IVPB ONE (03:57)
[2021-05-19 07:04] LABS: BASO % 0.2 % (0-2.0); EOS % 0.4 % (0-4.5); HEMOGLOBIN 12.3 GM/dL (10.7-15.3); MCH 32.8 pg (25.7-33.7); MCHC 36.1 g/dl (32.0-36.0); MEAN PLT VOLUME 6.9 fl (7.5-11.1); MONO % 8.5 % (3.8-10.2); NEUT % 82.9 % (42.8-82.8); PLATELET COUNT 219 10^3/uL (134-434); RBC 3.74 M/mm3 (3.60-5.2); RDW 12.6 % (11.6-15.6); WHITE BLOOD COUNT 9.8 K/mm3 (4.0-10.0)
[2021-05-19 08:04] LABS: CALCIUM 8.1 mg/dL (8.5-10.1)
[2021-05-19 08:05] LABS: BLOOD UREA NITROGEN 18.3 mg/dL (7-18)
[2021-05-19 08:08] LABS: CREATININE 0.8 mg/dL (0.55-1.3)
[2021-05-19] MEDS: MUPIROCIN 2% TOPICAL OINTMENT FOR DECOLONIZATION NS SCH ×2 (10:05→21:42)
[2021-05-19 12:46] LABS: BLOOD UREA NITROGEN 17.6 mg/dL (7-18); CALCIUM 8.4 mg/dL (8.5-10.1); CREATININE 0.9 mg/dL (0.55-1.3)
[2021-05-19] MEDS ORDERED: DESMOPRESSIN ACETATE 4 MCG/ML AMP IVPB ONE (13:05)
[2021-05-19] MEDS ORDERED: DEXTROSE 5%-WATER - 1,000 ML IV SCH (14:15)
[2021-05-19] MEDS: CHLORHEXIDINE GLUCONATE 4% CLEANSER FOR DECOLONIZATION TP SCH (21:42)
[2021-05-20 07:28] LABS: BLOOD UREA NITROGEN 19.3 mg/dL (7-18); CALCIUM 8.3 mg/dL (8.5-10.1); MAGNESIUM 2.2 mg/dL (1.8-2.4)
[2021-05-20] MEDS ORDERED: SODIUM CHLORIDE 1,000 ML IV SCH (07:30)
[2021-05-20 07:31] LABS: CREATININE 0.8 mg/dL (0.55-1.3); PHOSPHOROUS 2.4 mg/dL (2.5-4.9)
[2021-05-20] MEDS: MUPIROCIN 2% TOPICAL OINTMENT FOR DECOLONIZATION NS SCH ×2 (09:00→21:07)
[2021-05-20] MEDS ORDERED: amLODIPine BESYLATE 5 MG TABLET (FP) PO SCH (12:00)
[2021-05-20] MEDS ORDERED: LIDOCAINE HCL 1%, 10 MG/ML (50 mL VIAL) SQ ONE (12:55)
[2021-05-20 15:52] VITALS: BMI 28.8
[2021-05-20 16:15] LABS: CALCIUM 8.4 mg/dL (8.5-10.1)
[2021-05-20 16:19] LABS: CREATININE 0.8 mg/dL (0.55-1.3)
[2021-05-20] MEDS ORDERED: SODIUM CHLORIDE 3% 500 ML/500 ML INFUS.BAG IV ONE ×2 (16:29→19:37)
[2021-05-20] MEDS ORDERED: amLODIPine BESYLATE 5 MG TABLET (FP) PO ONE (17:20)
[2021-05-20] MEDS ORDERED: LOSARTAN POTASSIUM 50 MG TABLET PO SCH (17:45)
[2021-05-20 18:55] LABS: BLOOD UREA NITROGEN 16.1 mg/dL (7-18); CALCIUM 8.2 mg/dL (8.5-10.1)
[2021-05-20 18:59] LABS: CREATININE 0.6 mg/dL (0.55-1.3)
[2021-05-20] MEDS: CHLORHEXIDINE GLUCONATE 4% CLEANSER FOR DECOLONIZATION TP SCH (21:07)
[2021-05-20 21:15] LABS: CALCIUM 8.2 mg/dL (8.5-10.1)
[2021-05-20 21:16] LABS: BLOOD UREA NITROGEN 14.8 mg/dL (7-18)
[2021-05-20 21:19] LABS: CREATININE 0.7 mg/dL (0.55-1.3)
[2021-05-20] MEDS ORDERED: DEXAMETHASONE 0.5 MG TABLET PO ONE (23:00)
[2021-05-20 23:46] LABS: CALCIUM 7.8 mg/dL (8.5-10.1)
[2021-05-20 23:47] LABS: BLOOD UREA NITROGEN 14.4 mg/dL (7-18)
[2021-05-20 23:50] LABS: CREATININE 0.7 mg/dL (0.55-1.3)
[2021-05-21 02:27] LABS: CALCIUM 7.4 mg/dL (8.5-10.1)
[2021-05-21 02:28] LABS: BLOOD UREA NITROGEN 14.1 mg/dL (7-18)
[2021-05-21 02:31] LABS: CREATININE 0.7 mg/dL (0.55-1.3)
[2021-05-21 04:20] LABS: BLOOD UREA NITROGEN 13.5 mg/dL (7-18)
[2021-05-21 04:23] LABS: CREATININE 0.8 mg/dL (0.55-1.3)
[2021-05-21 07:30] LABS: BASO % 0.1 % (0-2.0); EOS % 0.1 % (0-4.5); HEMATOCRIT 34.3 % (32.4-45.2); HEMOGLOBIN 11.8 GM/dL (10.7-15.3); LYMPH % 9.3 % (8-40); MCH 31.9 pg (25.7-33.7); MCHC 34.4 g/dl (32.0-36.0); MEAN CELL VOLUME 92.5 fl (80-96); MEAN PLT VOLUME 7.3 fl (7.5-11.1); MONO % 2.8 % (3.8-10.2); NEUT % 87.7 % (42.8-82.8); PLATELET COUNT 256 10^3/uL (134-434); RBC 3.71 M/mm3 (3.60-5.2); WHITE BLOOD COUNT 6.7 K/mm3 (4.0-10.0)
[2021-05-21 08:03] LABS: ALBUMIN 3.2 g/dl (3.4-5.0); BLOOD UREA NITROGEN 13.4 mg/dL (7-18); MAGNESIUM 1.9 mg/dL (1.8-2.4)
[2021-05-21 08:06] LABS: CREATININE 0.8 mg/dL (0.55-1.3); PHOSPHOROUS 3.2 mg/dL (2.5-4.9)
[2021-05-21 08:07] LABS: BILIRUBIN,TOTAL 0.4 mg/dL (0.2-1); TOT PROT 6.2 g/dl (6.4-8.2)
[2021-05-21] MEDS: MUPIROCIN 2% TOPICAL OINTMENT FOR DECOLONIZATION NS SCH ×2 (09:20→22:11)
[2021-05-21] MEDS ORDERED: LOSARTAN POTASSIUM 50 MG TABLET PO SCH (10:00)
[2021-05-21] MEDS ORDERED: amLODIPine BESYLATE 10 MG TABLET (FP) PO SCH (10:00)
[2021-05-21] MEDS: SODIUM CHLORIDE 1 GM TABLET PO SCH ×2 (13:06→22:26)
[2021-05-21 13:26] LABS: BLOOD UREA NITROGEN 14.9 mg/dL (7-18); CALCIUM 8.1 mg/dL (8.5-10.1)
[2021-05-21 13:29] LABS: CREATININE 0.7 mg/dL (0.55-1.3)
[2021-05-21] MEDS ORDERED: ALBUTEROL SO4 2.5/IPRATROPIUM 0.5 INH SOL 3 ML VIAL.NEB. NEB ONE (18:09)
[2021-05-21] MEDS ORDERED: ALBUTEROL SO4 HFA INHALER IH ONE (18:15)
[2021-05-21] MEDS: CHLORHEXIDINE GLUCONATE 4% CLEANSER FOR DECOLONIZATION TP SCH (22:11)
[2021-05-21] MEDS ORDERED: guaiFENesin 200 MG/10 ML 10 ML UNIT-DOSE CUPS PO ONE (22:18)
[2021-05-22 07:23] LABS: BASO % 0.3 % (0-2.0); EOS % 2.5 % (0-4.5); HEMATOCRIT 32.1 % (32.4-45.2); HEMOGLOBIN 11.1 GM/dL (10.7-15.3); LYMPH % 18.8 % (8-40); MCH 32.3 pg (25.7-33.7); MCHC 34.7 g/dl (32.0-36.0); MEAN PLT VOLUME 6.9 fl (7.5-11.1); MONO % 9.4 % (3.8-10.2); PLATELET COUNT 231 10^3/uL (134-434); RBC 3.45 M/mm3 (3.60-5.2); RDW 13.1 % (11.6-15.6); WHITE BLOOD COUNT 7.3 K/mm3 (4.0-10.0)
[2021-05-22 07:36] LABS: CALCIUM 8.4 mg/dL (8.5-10.1)
[2021-05-22 07:37] LABS: ALBUMIN 3.1 g/dl (3.4-5.0); BLOOD UREA NITROGEN 16.5 mg/dL (7-18); MAGNESIUM 2.1 mg/dL (1.8-2.4)
[2021-05-22 07:40] LABS: CREATININE 0.8 mg/dL (0.55-1.3); PHOSPHOROUS 3.1 mg/dL (2.5-4.9)
[2021-05-22 07:41] LABS: TOT PROT 5.6 g/dl (6.4-8.2)
[2021-05-22 07:42] LABS: BILIRUBIN,TOTAL 0.4 mg/dL (0.2-1)
[2021-05-22] MEDS: SODIUM CHLORIDE 1 GM TABLET PO SCH ×2 (09:28→22:15)
[2021-05-22] MEDS ORDERED: amLODIPine BESYLATE 2.5 MG TABLET (FP) PO SCH (10:00)
[2021-05-22] MEDS: ENOXAPARIN NA (PORCINE) 40 MG/0.4 ML DISP.SYRIN SQ SCH (11:04)
[2021-05-22] MEDS: MUPIROCIN 2% TOPICAL OINTMENT FOR DECOLONIZATION NS SCH ×2 (11:04→22:15)
[2021-05-22] MEDS: LOSARTAN POTASSIUM 50 MG TABLET PO SCH (18:15)
[2021-05-22] MEDS ORDERED: POLYETHYLENE GLYCOL (HEALTHYLAX) 3350 17 GM PACKET PO PRN (21:46)
[2021-05-22] MEDS: CHLORHEXIDINE GLUCONATE 4% CLEANSER FOR DECOLONIZATION TP SCH (22:15)
[2021-05-22] MEDS: DOCUSATE SODIUM 100 MG CAPSULE (FP) PO SCH (22:15)
[2021-05-23 06:44] LABS: BASO % 0.4 % (0-2.0); EOS % 2.4 % (0-4.5); HEMATOCRIT 35.7 % (32.4-45.2); LYMPH % 18.8 % (8-40); MCH 31.7 pg (25.7-33.7); MCHC 33.6 g/dl (32.0-36.0); MEAN CELL VOLUME 94.3 fl (80-96); MEAN PLT VOLUME 6.8 fl (7.5-11.1); MONO % 8.1 % (3.8-10.2); NEUT % 70.3 % (42.8-82.8); PLATELET COUNT 279 10^3/uL (134-434); RBC 3.79 M/mm3 (3.60-5.2); WHITE BLOOD COUNT 6.2 K/mm3 (4.0-10.0)
[2021-05-23 06:54] LABS: CALCIUM 8.5 mg/dL (8.5-10.1)
[2021-05-23 06:55] LABS: BLOOD UREA NITROGEN 16.4 mg/dL (7-18)
[2021-05-23 06:58] LABS: CREATININE 0.8 mg/dL (0.55-1.3)
[2021-05-23] MEDS: DOCUSATE SODIUM 100 MG CAPSULE (FP) PO SCH ×2 (09:37→22:20)
[2021-05-23] MEDS: ENOXAPARIN NA (PORCINE) 40 MG/0.4 ML DISP.SYRIN SQ SCH (09:38)
[2021-05-23] MEDS: MUPIROCIN 2% TOPICAL OINTMENT FOR DECOLONIZATION NS SCH ×2 (09:38→22:20)
[2021-05-23] MEDS: amLODIPine BESYLATE 5 MG TABLET (FP) PO SCH (09:38)
[2021-05-23] MEDS: LOSARTAN POTASSIUM 50 MG TABLET PO SCH (09:38)
[2021-05-23] MEDS: CHLORHEXIDINE GLUCONATE 4% CLEANSER FOR DECOLONIZATION TP SCH (22:20)
[2021-05-24 07:15] LABS: BASO % 0.3 % (0-2.0); EOS % 2.3 % (0-4.5); HEMATOCRIT 32.2 % (32.4-45.2); HEMOGLOBIN 11.2 GM/dL (10.7-15.3); MCH 32.4 pg (25.7-33.7); MCHC 34.9 g/dl (32.0-36.0); MEAN CELL VOLUME 92.9 fl (80-96); MEAN PLT VOLUME 6.7 fl (7.5-11.1); MONO % 7.1 % (3.8-10.2); NEUT % 72.3 % (42.8-82.8); PLATELET COUNT 264 10^3/uL (134-434); RBC 3.47 M/mm3 (3.60-5.2); RDW 13.1 % (11.6-15.6); WHITE BLOOD COUNT 6.7 K/mm3 (4.0-10.0)
[2021-05-24 07:29] VITALS: TEMP 98.6
[2021-05-24 07:40] LABS: BLOOD UREA NITROGEN 17.2 mg/dL (7-18); CALCIUM 8.6 mg/dL (8.5-10.1)
[2021-05-24 07:44] LABS: CREATININE 0.8 mg/dL (0.55-1.3)
[2021-05-24] MEDS: amLODIPine BESYLATE 5 MG TABLET (FP) PO SCH ×2 (08:21→10:00)
[2021-05-24 09:03] VITALS: PULSE 91
[2021-05-24] MEDS: LOSARTAN POTASSIUM 50 MG TABLET PO SCH (10:00)
[2021-05-24] MEDS ORDERED: CHLORTHALIDONE 25 MG TABLET PO SCH (10:00)
[2021-05-24 10:29] VITALS: BP 142/61
[2021-05-24] MEDS: DOCUSATE SODIUM 100 MG CAPSULE (FP) PO SCH (12:13)
[2021-05-24] MEDS: ENOXAPARIN NA (PORCINE) 40 MG/0.4 ML DISP.SYRIN SQ SCH (12:17)
[2021-05-27 10:07] LABS: NORMETANEPHRINE 126.6 pg/mL (0.0-297.2)
== END 2021-05-24 12:51 | disposition home or self-care (01) | DRG 641 ==
LOC: JER 20:27 → JERBED 05-19 01:14 → JICU 05-19 05:46
PROVIDERS: ADMIT Internal Medicine Pulmonary Disease; ATTEND Internal Medicine
DX: E87.1 Hypo-osmolality and hyponatremia (principal); E78.5 Hyperlipidemia, unspecified; I25.10 Atherosclerotic heart disease of native coronary artery without angina pectoris; I70.0 Atherosclerosis of aorta; K57.30 Diverticulosis of large intestine without perforation or abscess without bleeding; D72.829 Elevated white blood cell count, unspecified; D35.00 Benign neoplasm of unspecified adrenal gland; M79.10 Myalgia, unspecified site; H91.8X3 Other specified hearing loss, bilateral; M54.9 Dorsalgia, unspecified; I44.0 Atrioventricular block, first degree; E87.5 Hyperkalemia; R00.1 Bradycardia, unspecified; I11.0 Hypertensive heart disease with heart failure; I50.9 Heart failure, unspecified; R31.9 Hematuria, unspecified; R80.9 Proteinuria, unspecified; K44.9 Diaphragmatic hernia without obstruction or gangrene; M16.12 Unilateral primary osteoarthritis, left hip
CPT/HCPCS: 36415; 70553-TC; 71045-TC-FY; 71250-TC; 74177-TC; 80048; 80053; 80061; 81003; 82436; 82533; 82570; 83036; 83690; 83735; 83835; 83880; 83930; 83935; 84100; 84155; 84156; 84165; 84295; 84300; 84443; 84484; 84550; 85025; 85610; 85730; 87077; 87086; 93005; 93010; 99285-25; A9579; C9803; J2597; J8540; Q9967; U0003; U0005

== ENCOUNTER 2021-08-25 09:38 | Emergency (ER) | payer OTHER ==
[2021-08-25 09:46] VITALS: BP 179/73; PULSE 55; TEMP 98; BMI 32.0
== END 2021-08-25 12:23 | disposition home or self-care (01) ==
LOC: JERFT 09:38
DX: L42 Pityriasis rosea (principal)
CPT/HCPCS: 99283-25

== ENCOUNTER 2021-10-15 22:11 | Inpatient (IN) | payer OTHER ==
[2021-10-16 00:17] LABS: BASO % 0.4 % (0-2.0); EOS % 2.5 % (0-4.5); HEMATOCRIT 37.5 % (32.4-45.2); HEMOGLOBIN 12.8 GM/dL (10.7-15.3); LYMPH % 16.1 % (8-40); MCH 30.9 pg (25.7-33.7); MEAN CELL VOLUME 90.7 fl (80-96); MEAN PLT VOLUME 7.1 fl (7.5-11.1); MONO % 9.8 % (3.8-10.2); NEUT % 71.2 % (42.8-82.8); PLATELET COUNT 255 10^3/uL (134-434); RBC 4.13 M/mm3 (3.60-5.2); RDW 13.4 % (11.6-15.6); WHITE BLOOD COUNT 8.7 K/mm3 (4.0-10.0)
[2021-10-16 00:40] LABS: ALBUMIN 3.7 g/dl (3.4-5.0); BLOOD UREA NITROGEN 21.6 mg/dL (7-18); CALCIUM 8.8 mg/dL (8.5-10.1)
[2021-10-16 00:44] LABS: CREATININE 0.8 mg/dL (0.55-1.3)
[2021-10-16 00:45] LABS: BILIRUBIN,TOTAL 0.7 mg/dL (0.2-1); TOT PROT 6.9 g/dl (6.4-8.2)
[2021-10-16] MEDS ORDERED: FUROSEMIDE 40 MG/4 ML INJECTABLE VIAL IVPUSH ONE (02:58)
[2021-10-16 03:20] LABS: CALCIUM 8.9 mg/dL (8.5-10.1)
[2021-10-16 03:21] LABS: ALBUMIN 3.7 g/dl (3.4-5.0)
[2021-10-16 03:24] LABS: CREATININE 0.8 mg/dL (0.55-1.3)
[2021-10-16 03:25] LABS: TOT PROT 6.7 g/dl (6.4-8.2)
[2021-10-16 03:26] LABS: BILIRUBIN,TOTAL 0.4 mg/dL (0.2-1)
[2021-10-16] MEDS ORDERED: FUROSEMIDE 40 MG/4 ML INJECTABLE VIAL ONE ×2 (03:59→13:20)
[2021-10-16 06:57] LABS: EPI CELLS 6 /uL (0-25.1); HYALINE CASTS 0 /uL (0-3.1); PH,URINE 5.5 (5.0-8.0); URINE APPEARANCE CLEAR; URINE BACTERIA 5 /uL (0-1359); URINE BILIRUBIN NEGATIVE (NEGATIVE); URINE COLOR YELLOW; URINE GLUCOSE (UA) NEGATIVE (NEGATIVE); URINE KETONE NEGATIVE (NEGATIVE); URINE LEUK ESTERASE NEGATIVE (NEGATIVE); URINE NITRITE NEGATIVE (NEGATIVE); URINE PROTEIN 3+ (NEGATIVE); URINE RBC 3 /uL (0-23.9); URINE UROBILINOGEN 0.2 mg/dL (0.2-1.0); URINE WBC 2 /uL (0-25.8)
[2021-10-16 07:29] LABS: BASO % 0.4 % (0-2.0); EOS % 2.3 % (0-4.5); HEMATOCRIT 38.4 % (32.4-45.2); HEMOGLOBIN 13.3 GM/dL (10.7-15.3); MCH 31.1 pg (25.7-33.7); MCHC 34.6 g/dl (32.0-36.0); MEAN CELL VOLUME 89.8 fl (80-96); MEAN PLT VOLUME 6.9 fl (7.5-11.1); MONO % 8.9 % (3.8-10.2); NEUT % 71.4 % (42.8-82.8); PLATELET COUNT 256 10^3/uL (134-434); RBC 4.28 M/mm3 (3.60-5.2); RDW 13.3 % (11.6-15.6); WHITE BLOOD COUNT 7.5 K/mm3 (4.0-10.0)
[2021-10-16 07:48] LABS: CALCIUM 9.2 mg/dL (8.5-10.1)
[2021-10-16 07:49] LABS: ALBUMIN 4.1 g/dl (3.4-5.0); BLOOD UREA NITROGEN 17.2 mg/dL (7-18)
[2021-10-16 07:52] LABS: CREATININE 0.9 mg/dL (0.55-1.3)
[2021-10-16 07:53] LABS: BILIRUBIN,TOTAL 0.6 mg/dL (0.2-1); TOT PROT 7.3 g/dl (6.4-8.2)
[2021-10-16] MEDS: SODIUM CHLORIDE 1 GM TABLET PO SCH ×2 (13:19→21:14)
[2021-10-16] MEDS ORDERED: LOSARTAN POTASSIUM 50 MG TABLET ONE (13:20)
[2021-10-16] MEDS: FUROSEMIDE 40 MG/4 ML INJECTABLE VIAL IVPUSH SCH (13:31)
[2021-10-16] MEDS: LOSARTAN POTASSIUM 50 MG TABLET PO SCH (13:31)
[2021-10-16 20:06] VITALS: BMI 29.6
[2021-10-16] MEDS: ROSUVASTATIN CA 5 MG TABLET PO SCH (21:14)
[2021-10-16] MEDS: MELATONIN 5 MG TABLETS PO PRN (21:14)
[2021-10-17] MEDS: LOSARTAN POTASSIUM 50 MG TABLET PO SCH (09:11)
[2021-10-17] MEDS: SODIUM CHLORIDE 1 GM TABLET PO SCH ×2 (09:11→21:35)
[2021-10-17] MEDS: FUROSEMIDE 40 MG/4 ML INJECTABLE VIAL IVPUSH SCH (09:11)
[2021-10-17 13:16] LABS: BLOOD UREA NITROGEN 28.9 mg/dL (7-18); CALCIUM 8.7 mg/dL (8.5-10.1)
[2021-10-17 13:17] LABS: ALBUMIN 3.5 g/dl (3.4-5.0)
[2021-10-17 13:21] LABS: BILIRUBIN,TOTAL 0.4 mg/dL (0.2-1); TOT PROT 6.4 g/dl (6.4-8.2)
[2021-10-17] MEDS: MELATONIN 5 MG TABLETS PO PRN (21:35)
[2021-10-17] MEDS: ROSUVASTATIN CA 5 MG TABLET PO SCH (21:35)
[2021-10-18 08:29] VITALS: BP 146/63; PULSE 79; RESP 19; TEMP 98
[2021-10-18 08:32] LABS: ALBUMIN 3.4 g/dl (3.4-5.0); BLOOD UREA NITROGEN 31.4 mg/dL (7-18); CALCIUM 8.8 mg/dL (8.5-10.1)
[2021-10-18 08:36] LABS: BILIRUBIN,TOTAL 0.4 mg/dL (0.2-1); TOT PROT 6.2 g/dl (6.4-8.2)
[2021-10-18] MEDS: FUROSEMIDE 40 MG/4 ML INJECTABLE VIAL IVPUSH SCH (09:27)
[2021-10-18] MEDS: SODIUM CHLORIDE 1 GM TABLET PO SCH (09:31)
[2021-10-18] MEDS: LOSARTAN POTASSIUM 50 MG TABLET PO SCH (09:32)
== END 2021-10-18 21:49 | disposition home or self-care (01) | DRG 291 ==
LOC: JER 22:11 → JERBED 10-16 01:53 → J4W 10-16 19:44
PROVIDERS: ADMIT Internal Medicine; ATTEND Internal Medicine
DX: I11.0 Hypertensive heart disease with heart failure (principal); I50.33 Acute on chronic diastolic (congestive) heart failure; E87.1 Hypo-osmolality and hyponatremia; E78.5 Hyperlipidemia, unspecified; I25.10 Atherosclerotic heart disease of native coronary artery without angina pectoris; K57.90 Diverticulosis of intestine, part unspecified, without perforation or abscess without bleeding; R52 Pain, unspecified; R11.2 Nausea with vomiting, unspecified; D35.00 Benign neoplasm of unspecified adrenal gland; R80.9 Proteinuria, unspecified; I44.0 Atrioventricular block, first degree; H91.93 Unspecified hearing loss, bilateral; I25.2 Old myocardial infarction; Z91.14 Patient's other noncompliance with medication regimen
CPT/HCPCS: 36415; 70450-TC; 71045-TC-FY; 80053; 81003; 82533; 83735; 83880; 83930; 83935; 84300; 84443; 84484; 85025; 87086; 93005; 93010; 93880-TC; 99285-25; C9803-CS; U0003; U0005

== ENCOUNTER 2022-09-17 10:13 | Emergency (ER) | payer OTHER ==
[2022-09-17 10:31] VITALS: BMI 28.9
[2022-09-17 11:44] LABS: BASO % 0.5 % (0-2.0); EOS % 1.7 % (0-4.5); HEMATOCRIT 38.1 % (32.4-45.2); HEMOGLOBIN 12.9 GM/dL (10.7-15.3); LYMPH % 14.1 % (8-40); MCH 30.6 pg (25.7-33.7); MEAN PLT VOLUME 7.5 fl (7.5-11.1); MONO % 8.7 % (3.8-10.2); PLATELET COUNT 244 10^3/uL (134-434); RBC 4.23 M/mm3 (3.60-5.2); RDW 13.6 % (11.6-15.6); WHITE BLOOD COUNT 7.9 K/mm3 (4.0-10.0)
[2022-09-17 11:47] VITALS: RESP 18
[2022-09-17 11:56] LABS: EPI CELLS 7 /uL (0-25.1); HYALINE CASTS 0 /uL (0-3.1); PH,URINE 6.5 (5.0-8.0); URINE APPEARANCE CLEAR; URINE BACTERIA 19 /uL (0-1359); URINE BILIRUBIN NEGATIVE (NEGATIVE); URINE COLOR YELLOW; URINE GLUCOSE (UA) NEGATIVE (NEGATIVE); URINE KETONE NEGATIVE (NEGATIVE); URINE LEUK ESTERASE NEGATIVE (NEGATIVE); URINE NITRITE NEGATIVE (NEGATIVE); URINE PROTEIN 3+ (NEGATIVE); URINE RBC 20 /uL (0-23.9); URINE UROBILINOGEN 0.2 mg/dL (0.2-1.0); URINE WBC 9 /uL (0-25.8)
[2022-09-17 12:33] LABS: POTASSIUM 5.8 mmol/L (3.5-5.1)
[2022-09-17 12:35] LABS: ALBUMIN 3.3 g/dl (3.4-5.0); BLOOD UREA NITROGEN 20.7 mg/dL (7-18); CALCIUM 9.2 mg/dL (8.5-10.1)
[2022-09-17 12:38] LABS: CREATININE 0.9 mg/dL (0.55-1.3)
[2022-09-17 12:40] LABS: BILIRUBIN,TOTAL 0.5 mg/dL (0.2-1); TOT PROT 6.6 g/dl (6.4-8.2)
[2022-09-17] MEDS ORDERED: FUROSEMIDE 40 MG/4 ML INJECTABLE VIAL IVPUSH ONE (13:41)
[2022-09-17 14:00] VITALS: BP 197/70; PULSE 66; TEMP 98
[2022-09-17] MEDS ORDERED: FUROSEMIDE 40 MG/4 ML INJECTABLE VIAL ONE (14:00)
== END 2022-09-17 14:54 | disposition home or self-care (01) ==
LOC: JER 10:13
PROC: 3E033GC Introduction of Other Therapeutic Substance into Peripheral Vein, Percutaneous Approach (ICD-10-PCS; principal; 2022-09-17)
DX: R60.0 Localized edema (principal)
CPT/HCPCS: 36415; 71046-TC-FY; 80053; 81003; 83880; 85025; 87086; 93005; 93010; 99285-25

== ENCOUNTER 2022-10-19 08:27 | Emergency (ER) | payer OTHER ==
[2022-10-19 08:44] VITALS: TEMP 98.3; BMI 27.8
[2022-10-19] MEDS ORDERED: ACETAMINOPHEN 500 MG TABLET (FP) PO ONE (09:05)
[2022-10-19] MEDS ORDERED: ACETAMINOPHEN 500 MG TABLET (FP) ONE (09:08)
[2022-10-19 11:20] VITALS: BP 188/74; PULSE 57; RESP 18
== END 2022-10-19 11:25 | disposition home or self-care (01) ==
LOC: JER 08:27
DX: M79.672 Pain in left foot (principal); I11.0 Hypertensive heart disease with heart failure; I50.9 Heart failure, unspecified; W57.XXXA Bitten or stung by nonvenomous insect and other nonvenomous arthropods, initial encounter; Y93.01 Activity, walking, marching and hiking; Y92.9 Unspecified place or not applicable
CPT/HCPCS: 73630-TC-LT; 99283-25

== ENCOUNTER 2022-12-17 17:21 | Observation (INO) | payer OTHER ==
[2022-12-17 17:44] VITALS: BMI 29.0
[2022-12-17 19:07] LABS: BASO % 0.5 % (0-2.0); EOS % 2.3 % (0-4.5); HEMATOCRIT 37.5 % (32.4-45.2); HEMOGLOBIN 13.1 GM/dL (10.7-15.3); MCH 31.4 pg (25.7-33.7); MCHC 34.9 g/dl (32.0-36.0); MEAN CELL VOLUME 90.2 fl (80-96); MEAN PLT VOLUME 7.1 fl (7.5-11.1); NEUT % 72.2 % (42.8-82.8); PLATELET COUNT 265 10^3/uL (134-434); RBC 4.16 M/mm3 (3.60-5.2); WHITE BLOOD COUNT 8.2 K/mm3 (4.0-10.0)
[2022-12-17 19:15] LABS: EPI CELLS 5 /uL (0-25.1); HYALINE CASTS 0 /uL (0-3.1); URINE APPEARANCE CLEAR; URINE BACTERIA 47 /uL (0-1359); URINE BILIRUBIN NEGATIVE (NEGATIVE); URINE COLOR YELLOW; URINE GLUCOSE (UA) NEGATIVE (NEGATIVE); URINE KETONE NEGATIVE (NEGATIVE); URINE LEUK ESTERASE NEGATIVE (NEGATIVE); URINE NITRITE NEGATIVE (NEGATIVE); URINE PROTEIN 3+ (NEGATIVE); URINE RBC 15 /uL (0-23.9); URINE UROBILINOGEN 0.2 mg/dL (0.2-1.0); URINE WBC 4 /uL (0-25.8)
[2022-12-17 19:30] LABS: POTASSIUM 4.8 mmol/L (3.5-5.1)
[2022-12-17 19:33] LABS: ALBUMIN 3.5 g/dl (3.4-5.0); BLOOD UREA NITROGEN 17.3 mg/dL (7-18); CALCIUM 8.9 mg/dL (8.5-10.1)
[2022-12-17 19:37] LABS: CREATININE 0.8 mg/dL (0.55-1.3)
[2022-12-17 19:39] LABS: BILIRUBIN,TOTAL 0.4 mg/dL (0.2-1); TOT PROT 6.6 g/dl (6.4-8.2)
[2022-12-17] MEDS ORDERED: hydrALAZINE HCL 25 MG TABLET (FP) PO ONE (23:29)
[2022-12-17] MEDS ORDERED: hydrALAZINE HCL 25 MG TABLET (FP) ONE (23:31)
[2022-12-18] MEDS ORDERED: ACETAMINOPHEN 325 MG TABLET (FP) PO PRN (01:44)
[2022-12-18] MEDS ORDERED: DOCUSATE SODIUM 100 MG CAPSULE (FP) PO PRN (01:44)
[2022-12-18] MEDS ORDERED: hydrALAZINE HCL 20 MG/ML VIAL IVPUSH ONE ×2 (04:04→04:30)
[2022-12-18] MEDS ORDERED: hydrALAZINE HCL 20 MG/ML VIAL ONE (04:26)
[2022-12-18 07:26] LABS: BASO % 0.4 % (0-2.0); EOS % 2.6 % (0-4.5); HEMATOCRIT 39.2 % (32.4-45.2); HEMOGLOBIN 13.3 GM/dL (10.7-15.3); LYMPH % 18.1 % (8-40); MCH 31.1 pg (25.7-33.7); MCHC 33.8 g/dl (32.0-36.0); MEAN CELL VOLUME 92.1 fl (80-96); MEAN PLT VOLUME 7.1 fl (7.5-11.1); MONO % 8.8 % (3.8-10.2); NEUT % 70.1 % (42.8-82.8); PLATELET COUNT 271 10^3/uL (134-434); RBC 4.26 M/mm3 (3.60-5.2); RDW 12.7 % (11.6-15.6); WHITE BLOOD COUNT 7.8 K/mm3 (4.0-10.0)
[2022-12-18 07:50] LABS: POTASSIUM 4.3 mmol/L (3.5-5.1)
[2022-12-18 07:53] LABS: CALCIUM 8.8 mg/dL (8.5-10.1)
[2022-12-18 07:54] LABS: BLOOD UREA NITROGEN 13.1 mg/dL (7-18)
[2022-12-18 07:57] LABS: CREATININE 0.8 mg/dL (0.55-1.3)
[2022-12-18] MEDS ORDERED: MECLIZINE HCL 12.5 MG TABLET PO PRN (10:00)
[2022-12-18] MEDS ORDERED: ROSUVASTATIN 5 MG PO SCH (10:00)
[2022-12-18] MEDS ORDERED: LOSARTAN POTASSIUM 50 MG TABLET ONE (10:07)
[2022-12-18] MEDS ORDERED: FUROSEMIDE 20 MG TABLET (FP) ONE (10:07)
[2022-12-18] MEDS: FUROSEMIDE 20 MG TABLET (FP) PO SCH (10:17)
[2022-12-18] MEDS: LOSARTAN POTASSIUM 50 MG TABLET PO SCH (10:17)
[2022-12-18] MEDS ORDERED: hydrALAZINE HCL 25 MG TABLET (FP) ONE (15:50)
[2022-12-18] MEDS: hydrALAZINE HCL 25 MG TABLET (FP) PO SCH ×2 (15:59→21:40)
[2022-12-18] MEDS: ROSUVASTATIN CA 5 MG TABLET PO SCH (22:50)
[2022-12-18] MEDS: LATANOPROST 0.005% OPHTH SOLN 2.5ML BOTTLE OU SCH (23:14)
[2022-12-19] MEDS: hydrALAZINE HCL 25 MG TABLET (FP) PO SCH ×3 (06:02→21:09)
[2022-12-19 08:54] LABS: INR 0.99 (0.83-1.09); PROTHROMBIN TIME (PATIENT) 11.5 SEC (9.7-13.0)
[2022-12-19 09:10] LABS: POTASSIUM 4.2 mmol/L (3.5-5.1)
[2022-12-19 09:14] LABS: CALCIUM 8.6 mg/dL (8.5-10.1)
[2022-12-19 09:15] LABS: ALBUMIN 3.2 g/dl (3.4-5.0); BLOOD UREA NITROGEN 20.7 mg/dL (7-18)
[2022-12-19 09:17] LABS: CREATININE 0.9 mg/dL (0.55-1.3); PHOSPHOROUS 3.9 mg/dL (2.5-4.9)
[2022-12-19 09:19] LABS: BILIRUBIN,TOTAL 0.6 mg/dL (0.2-1); TOT PROT 6.1 g/dl (6.4-8.2)
[2022-12-19] MEDS: LOSARTAN POTASSIUM 50 MG TABLET PO SCH (09:40)
[2022-12-19] MEDS: FUROSEMIDE 20 MG TABLET (FP) PO SCH (09:40)
[2022-12-19] MEDS: MECLIZINE HCL 25 MG TABLET (FP) PO SCH ×2 (14:00→21:09)
[2022-12-19] MEDS ORDERED: hydrALAZINE HCL 20 MG/ML VIAL IVPUSH PRN ×2 (17:14→17:23)
[2022-12-19] MEDS: LATANOPROST 0.005% OPHTH SOLN 2.5ML BOTTLE OU SCH (21:06)
[2022-12-19] MEDS: ROSUVASTATIN CA 5 MG TABLET PO SCH (21:09)
[2022-12-20 06:17] VITALS: RESP 18
[2022-12-20] MEDS: MECLIZINE HCL 25 MG TABLET (FP) PO SCH (06:25)
[2022-12-20] MEDS: hydrALAZINE HCL 25 MG TABLET (FP) PO SCH (06:25)
[2022-12-20 08:11] LABS: POTASSIUM 4.2 mmol/L (3.5-5.1)
[2022-12-20 08:12] LABS: CALCIUM 8.2 mg/dL (8.5-10.1)
[2022-12-20 08:13] LABS: BLOOD UREA NITROGEN 36.8 mg/dL (7-18)
[2022-12-20 08:16] LABS: CREATININE 1.1 mg/dL (0.55-1.3)
[2022-12-20 09:11] VITALS: BP 141/52; PULSE 55; TEMP 98.4
[2022-12-20] MEDS: LOSARTAN POTASSIUM 50 MG TABLET PO SCH (09:26)
[2022-12-20] MEDS: FUROSEMIDE 20 MG TABLET (FP) PO SCH (09:26)
== END 2022-12-20 14:18 | disposition home or self-care (01) ==
LOC: JER 17:21 → JERBED 22:55 → J4S 12-18 16:47
PROVIDERS: ADMIT Internal Medicine; ATTEND Internal Medicine
PROC: 3E033GC Introduction of Other Therapeutic Substance into Peripheral Vein, Percutaneous Approach (ICD-10-PCS; principal; 2022-12-17)
DX: E87.1 Hypo-osmolality and hyponatremia (principal); E78.5 Hyperlipidemia, unspecified; I50.9 Heart failure, unspecified; R80.9 Proteinuria, unspecified; D35.00 Benign neoplasm of unspecified adrenal gland
CPT/HCPCS: 36415; 70450-TC; 71275-TC; 72125-TC; 74174-TC; 80048; 80053; 81003; 83605; 83735; 84100; 84439; 84443; 84484; 85025; 85610; 85730; 87086; 93880-TC; 96374; 96376; 97116-GP; 97161-GP; 99285-25; G0378

== ENCOUNTER 2023-01-04 03:00 | Inpatient (IN) | payer OTHER ==
[2023-01-04 03:22] VITALS: BMI 25.4
[2023-01-04] MEDS ORDERED: MECLIZINE HCL 25 MG TABLET (FP) PO ONE (03:34)
[2023-01-04] MEDS ORDERED: MECLIZINE HCL 25 MG TABLET (FP) ONE (03:36)
[2023-01-04 04:08] LABS: BASO % 0.2 % (0-2.0); EOS % 2.1 % (0-4.5); HEMOGLOBIN 12.6 GM/dL (10.7-15.3); LYMPH % 12.5 % (8-40); MCH 31.8 pg (25.7-33.7); MCHC 35.1 g/dl (32.0-36.0); MEAN CELL VOLUME 90.7 fl (80-96); MEAN PLT VOLUME 6.6 fl (7.5-11.1); MONO % 8.1 % (3.8-10.2); NEUT % 77.1 % (42.8-82.8); PLATELET COUNT 263 10^3/uL (134-434); RBC 3.97 M/mm3 (3.60-5.2); RDW 13.2 % (11.6-15.6)
[2023-01-04 04:27] LABS: POTASSIUM 4.5 mmol/L (3.5-5.1)
[2023-01-04 04:29] LABS: ALBUMIN 3.7 g/dl (3.4-5.0); CALCIUM 8.6 mg/dL (8.5-10.1); MAGNESIUM 1.8 mg/dL (1.8-2.4)
[2023-01-04 04:30] LABS: BLOOD UREA NITROGEN 24.5 mg/dL (7-18)
[2023-01-04 04:34] LABS: BILIRUBIN,TOTAL 0.3 mg/dL (0.2-1); TOT PROT 6.8 g/dl (6.4-8.2)
[2023-01-04 04:37] LABS: N-TERMINAL BNP 723.6 pg/ml (5-450)
[2023-01-04] MEDS ORDERED: LOSARTAN POTASSIUM 25 MG TABLET PO ONE (04:50)
[2023-01-04 04:56] LABS: EPI CELLS 3 /uL (0-25.1); HYALINE CASTS 0 /uL (0-3.1); PH,URINE 6.5 (5.0-8.0); URINE APPEARANCE CLEAR; URINE BACTERIA 17 /uL (0-1359); URINE BILIRUBIN NEGATIVE (NEGATIVE); URINE COLOR YELLOW; URINE GLUCOSE (UA) NEGATIVE (NEGATIVE); URINE KETONE NEGATIVE (NEGATIVE); URINE LEUK ESTERASE NEGATIVE (NEGATIVE); URINE NITRITE NEGATIVE (NEGATIVE); URINE PROTEIN 2+ (NEGATIVE); URINE RBC 22 /uL (0-23.9); URINE UROBILINOGEN 0.2 mg/dL (0.2-1.0); URINE WBC 4 /uL (0-25.8)
[2023-01-04] MEDS ORDERED: LOSARTAN POTASSIUM 25 MG TABLET ONE ×2 (04:59→11:42)
[2023-01-04] MEDS ORDERED: SODIUM CHLORIDE 0.9% 500 ML INFUS.BAG IV ONE (04:59)
[2023-01-04 06:10] LABS: INR 1.05 (0.83-1.09); PROTHROMBIN TIME (PATIENT) 12.2 SEC (9.7-13.0)
[2023-01-04 06:13] LABS: ACTIVATED PTT 30.3 SECONDS (25.2-36.5)
[2023-01-04] MEDS ORDERED: LOSARTAN POTASSIUM 50 MG TABLET ONE (11:42)
[2023-01-04] MEDS ORDERED: FUROSEMIDE 40 MG/4 ML INJECTABLE VIAL ONE (11:42)
[2023-01-04] MEDS ORDERED: LOSARTAN POTASSIUM 50 MG, LOSARTAN POTASSIUM 25 MG PO ONE (11:45)
[2023-01-04] MEDS: amLODIPine BESYLATE 10 MG TABLET (FP) PO SCH (11:54)
[2023-01-04] MEDS: FUROSEMIDE 40 MG/4 ML INJECTABLE VIAL IVPUSH SCH (11:54)
[2023-01-04] MEDS: HEPARIN NA (PORCINE) 5,000 UNITS/ML 1ML VIAL SQ SCH ×2 (14:11→22:14)
[2023-01-04] MEDS ORDERED: HEPARIN NA (PORCINE) 5,000 UNITS/ML 1ML VIAL ONE (14:13)
[2023-01-04] MEDS ORDERED: ATORVASTATIN CA 40 MG TABLET (FP) PO SCH (22:00)
[2023-01-04] MEDS ORDERED: ATORVASTATIN CA 40 MG TABLET (FP) ONE (22:08)
[2023-01-04 22:13] VITALS: TEMP 98
[2023-01-04 23:23] LABS: POTASSIUM 4.4 mmol/L (3.5-5.1)
[2023-01-04 23:25] LABS: CALCIUM 8.9 mg/dL (8.5-10.1)
[2023-01-04 23:29] LABS: CREATININE 1.2 mg/dL (0.55-1.3)
[2023-01-05] MEDS ORDERED: HEPARIN NA (PORCINE) 5,000 UNITS/ML 1ML VIAL ONE (05:36)
[2023-01-05] MEDS: HEPARIN NA (PORCINE) 5,000 UNITS/ML 1ML VIAL SQ SCH (06:06)
[2023-01-05 09:11] VITALS: BP 143/50; PULSE 99; RESP 16
[2023-01-05] MEDS: amLODIPine BESYLATE 10 MG TABLET (FP) PO SCH ×2 (09:44→09:46)
[2023-01-05] MEDS: FUROSEMIDE 40 MG/4 ML INJECTABLE VIAL IVPUSH SCH (09:44)
[2023-01-05] MEDS ORDERED: ASPIRIN COATED 81 MG TABLET.EC PO SCH (10:00)
[2023-01-05] MEDS ORDERED: LOSARTAN POTASSIUM 50 MG TABLET PO SCH (10:00)
[2023-01-05 10:58] LABS: BASO % 0.3 % (0-2.0); EOS % 3.4 % (0-4.5); HEMATOCRIT 36.9 % (32.4-45.2); HEMOGLOBIN 13.2 GM/dL (10.7-15.3); LYMPH % 18.4 % (8-40); MCH 32.3 pg (25.7-33.7); MCHC 35.7 g/dl (32.0-36.0); MEAN CELL VOLUME 90.5 fl (80-96); MEAN PLT VOLUME 7.1 fl (7.5-11.1); MONO % 10.3 % (3.8-10.2); NEUT % 67.6 % (42.8-82.8); PLATELET COUNT 264 10^3/uL (134-434); RBC 4.08 M/mm3 (3.60-5.2); RDW 13.3 % (11.6-15.6); WHITE BLOOD COUNT 6.6 K/mm3 (4.0-10.0)
[2023-01-05 11:10] LABS: INR 0.99 (0.83-1.09); PROTHROMBIN TIME (PATIENT) 11.5 SEC (9.7-13.0)
[2023-01-05 11:21] LABS: POTASSIUM 4.4 mmol/L (3.5-5.1)
[2023-01-05 11:29] LABS: CALCIUM 8.9 mg/dL (8.5-10.1)
[2023-01-05 11:30] LABS: ALBUMIN 3.4 g/dl (3.4-5.0); MAGNESIUM 1.9 mg/dL (1.8-2.4)
[2023-01-05 11:32] LABS: BILIRUBIN,TOTAL 0.4 mg/dL (0.2-1); TOT PROT 6.6 g/dl (6.4-8.2)
== END 2023-01-05 13:52 | disposition home or self-care (01) | DRG 641 ==
LOC: JER 03:00 → JERBED 05:01
PROVIDERS: ADMIT Internal Medicine; ATTEND Internal Medicine
DX: E87.1 Hypo-osmolality and hyponatremia (principal); I50.32 Chronic diastolic (congestive) heart failure; I11.0 Hypertensive heart disease with heart failure; E78.5 Hyperlipidemia, unspecified; K57.90 Diverticulosis of intestine, part unspecified, without perforation or abscess without bleeding; I25.10 Atherosclerotic heart disease of native coronary artery without angina pectoris; R42 Dizziness and giddiness; D35.00 Benign neoplasm of unspecified adrenal gland; R80.9 Proteinuria, unspecified; Z91.199 Patient's noncompliance with other medical treatment and regimen due to unspecified reason
CPT/HCPCS: 0241U-QW; 36415; 70486-TC; 71045-TC-FY; 80048; 80053; 81003; 82533; 83735; 83880; 84100; 84443; 84484; 85025; 85379; 85610; 85730; 87086; 93005; 93010; 93970-TC; 99285-25; J1644

== ENCOUNTER 2023-02-08 00:37 | Inpatient (IN) | payer OTHER ==
[2023-02-08 02:35] LABS: BASO % 0.4 % (0-2.0); EOS % 1.9 % (0-4.5); HEMATOCRIT 35.6 % (32.4-45.2); HEMOGLOBIN 12.4 GM/dL (10.7-15.3); LYMPH % 13.4 % (8-40); MCH 31.3 pg (25.7-33.7); MCHC 34.8 g/dl (32.0-36.0); MEAN PLT VOLUME 6.8 fl (7.5-11.1); MONO % 13.7 % (3.8-10.2); NEUT % 70.6 % (42.8-82.8); PLATELET COUNT 233 10^3/uL (134-434); RBC 3.95 M/mm3 (3.60-5.2); RDW 13.2 % (11.6-15.6); WHITE BLOOD COUNT 6.1 K/mm3 (4.0-10.0)
[2023-02-08 02:44] LABS: INR 1.02 (0.83-1.09); PROTHROMBIN TIME (PATIENT) 11.8 SEC (9.7-13.0)
[2023-02-08 02:46] LABS: ACTIVATED PTT 30.1 SECONDS (25.2-36.5)
[2023-02-08 02:53] LABS: POTASSIUM 4.7 mmol/L (3.5-5.1)
[2023-02-08] MEDS ORDERED: NITROGLYCERIN SUBLINGUAL 1/150 0.4 MG TAB SL ONE (02:53)
[2023-02-08] MEDS ORDERED: diazePAM 5 MG TABLET PO ONE (02:53)
[2023-02-08] MEDS ORDERED: LOSARTAN POTASSIUM 50 MG TABLET PO ONE (02:54)
[2023-02-08 02:55] LABS: ALBUMIN 3.3 g/dl (3.4-5.0); CALCIUM 8.4 mg/dL (8.5-10.1)
[2023-02-08 02:56] LABS: BLOOD UREA NITROGEN 20.3 mg/dL (7-18); MAGNESIUM 1.9 mg/dL (1.8-2.4)
[2023-02-08] MEDS ORDERED: ALBUTEROL SO4 2.5/IPRATROPIUM 0.5 INH SOL 3 ML VIAL.NEB. NEB ONE ×2 (02:56→03:03)
[2023-02-08] MEDS ORDERED: SODIUM CHLORIDE 1 GM TABLET PO ONE (02:57)
[2023-02-08 02:59] LABS: CREATININE 0.8 mg/dL (0.55-1.3)
[2023-02-08 03:00] LABS: BILIRUBIN,TOTAL 0.5 mg/dL (0.2-1); TOT PROT 6.2 g/dl (6.4-8.2)
[2023-02-08] MEDS ORDERED: LOSARTAN POTASSIUM 50 MG TABLET ONE ×2 (03:03→09:19)
[2023-02-08] MEDS ORDERED: diazePAM 5 MG TABLET ONE (03:03)
[2023-02-08 03:04] LABS: N-TERMINAL BNP 1655.8 pg/ml (5-450)
[2023-02-08 03:41] LABS: EPI CELLS 3 /uL (0-25.1); HYALINE CASTS 0 /uL (0-3.1); PH,URINE 6.5 (5.0-8.0); URINE APPEARANCE CLEAR; URINE BACTERIA 482 /uL (0-1359); URINE BILIRUBIN NEGATIVE (NEGATIVE); URINE COLOR YELLOW; URINE GLUCOSE (UA) NEGATIVE (NEGATIVE); URINE KETONE NEGATIVE (NEGATIVE); URINE LEUK ESTERASE NEGATIVE (NEGATIVE); URINE NITRITE NEGATIVE (NEGATIVE); URINE PROTEIN 3+ (NEGATIVE); URINE RBC 6 /uL (0-23.9); URINE UROBILINOGEN 0.2 mg/dL (0.2-1.0); URINE WBC 1 /uL (0-25.8)
[2023-02-08] MEDS ORDERED: ACETAMINOPHEN 325 MG TABLET (FP) PO PRN (05:49)
[2023-02-08] MEDS ORDERED: DOCUSATE SODIUM 100 MG CAPSULE (FP) PO PRN (05:49)
[2023-02-08] MEDS ORDERED: FUROSEMIDE 40 MG/4 ML INJECTABLE VIAL IVPUSH ONE (07:17)
[2023-02-08] MEDS ORDERED: ACETAMINOPHEN 1000 MG/100 ML BAG IVPB PRN (07:19)
[2023-02-08] MEDS ORDERED: FUROSEMIDE 40 MG/4 ML INJECTABLE VIAL ONE (07:30)
[2023-02-08] MEDS ORDERED: hydrALAZINE HCL 25 MG TABLET (FP) PO SCH (07:45)
[2023-02-08] MEDS ORDERED: hydrALAZINE HCL 25 MG TABLET (FP) ONE (07:50)
[2023-02-08 08:54] LABS: POTASSIUM 4.2 mmol/L (3.5-5.1)
[2023-02-08 08:59] LABS: BLOOD UREA NITROGEN 18.9 mg/dL (7-18); CALCIUM 8.3 mg/dL (8.5-10.1); MAGNESIUM 1.9 mg/dL (1.8-2.4)
[2023-02-08 09:02] LABS: CREATININE 0.8 mg/dL (0.55-1.3)
[2023-02-08] MEDS ORDERED: HEPARIN NA (PORCINE) 5,000 UNITS/ML 1ML VIAL ONE ×2 (09:19→22:39)
[2023-02-08] MEDS ORDERED: ASPIRIN COATED 81 MG TABLET.EC ONE (09:19)
[2023-02-08] MEDS: HEPARIN NA (PORCINE) 5,000 UNITS/ML 1ML VIAL SQ SCH ×2 (09:33→22:48)
[2023-02-08] MEDS: ASPIRIN COATED 81 MG TABLET.EC PO SCH (09:33)
[2023-02-08] MEDS: LOSARTAN POTASSIUM 50 MG TABLET PO SCH (09:33)
[2023-02-08] MEDS ORDERED: ACETAMINOPHEN INJECTION 100 ML IVPB ONE ×2 (10:19→10:23)
[2023-02-08] MEDS ORDERED: ALBUTEROL SO4 2.5/IPRATROPIUM 0.5 INH SOL 3 ML VIAL.NEB. NEB PRN (10:20)
[2023-02-08] MEDS: guaiFENesin/D-METHORPHAN TAB.ER.12H PO SCH ×2 (10:57→22:48)
[2023-02-08 12:54] LABS: CALCIUM 8.4 mg/dL (8.5-10.1)
[2023-02-08 12:55] LABS: POTASSIUM 4.2 mmol/L (3.5-5.1)
[2023-02-08 12:58] LABS: CREATININE 0.8 mg/dL (0.55-1.3)
[2023-02-08] MEDS ORDERED: hydrALAZINE HCL 50 MG TABLET (FP) ONE ×2 (15:25→22:39)
[2023-02-08] MEDS: hydrALAZINE HCL 25 MG TABLET (FP) PO SCH ×2 (15:28→22:48)
[2023-02-08] MEDS ORDERED: ROSUVASTATIN CA 5 MG TABLET PO SCH (22:00)
[2023-02-08] MEDS ORDERED: LATANOPROST 0.005% OPHTH SOLN 2.5ML BOTTLE OU SCH (22:00)
[2023-02-08] MEDS ORDERED: ROSUVASTATIN CA 5 MG TABLET ONE (22:39)
[2023-02-09] MEDS ORDERED: hydrALAZINE HCL 50 MG TABLET (FP) ONE (06:42)
[2023-02-09] MEDS: hydrALAZINE HCL 50 MG TABLET (FP) PO SCH ×3 (06:47→21:50)
[2023-02-09 08:16] LABS: BASO % 0.2 % (0-2.0); EOS % 1.3 % (0-4.5); HEMATOCRIT 37.9 % (32.4-45.2); HEMOGLOBIN 12.4 GM/dL (10.7-15.3); LYMPH % 11.9 % (8-40); MCH 30.2 pg (25.7-33.7); MCHC 32.6 g/dl (32.0-36.0); MEAN CELL VOLUME 92.6 fl (80-96); MEAN PLT VOLUME 6.6 fl (7.5-11.1); MONO % 10.7 % (3.8-10.2); NEUT % 75.9 % (42.8-82.8); PLATELET COUNT 240 10^3/uL (134-434); RBC 4.09 M/mm3 (3.60-5.2); WHITE BLOOD COUNT 6.7 K/mm3 (4.0-10.0)
[2023-02-09 08:34] LABS: POTASSIUM 4.5 mmol/L (3.5-5.1)
[2023-02-09 08:35] LABS: BLOOD UREA NITROGEN 21.2 mg/dL (7-18); CALCIUM 8.3 mg/dL (8.5-10.1)
[2023-02-09 08:39] LABS: CREATININE 0.9 mg/dL (0.55-1.3)
[2023-02-09] MEDS ORDERED: FUROSEMIDE 40 MG TABLET (FP) PO SCH (10:00)
[2023-02-09] MEDS: HEPARIN NA (PORCINE) 5,000 UNITS/ML 1ML VIAL SQ SCH ×2 (10:03→21:50)
[2023-02-09] MEDS: LOSARTAN POTASSIUM 50 MG TABLET PO SCH (10:03)
[2023-02-09] MEDS: ASPIRIN COATED 81 MG TABLET.EC PO SCH (10:03)
[2023-02-09] MEDS: guaiFENesin/D-METHORPHAN TAB.ER.12H PO SCH (10:55)
[2023-02-09 13:20] LABS: POTASSIUM 4.3 mmol/L (3.5-5.1)
[2023-02-09 13:21] LABS: CALCIUM 8.2 mg/dL (8.5-10.1)
[2023-02-09 13:22] LABS: BLOOD UREA NITROGEN 24.7 mg/dL (7-18)
[2023-02-09] MEDS ORDERED: amLODIPine BESYLATE 5 MG TABLET (FP) ONE (13:39)
[2023-02-09] MEDS: amLODIPine BESYLATE 5 MG TABLET (FP) PO SCH (13:39)
[2023-02-09] MEDS ORDERED: ALBUTEROL SO4 2.5/IPRATROPIUM 0.5 INH SOL 3 ML VIAL.NEB. NEB PRN (13:50)
[2023-02-09] MEDS ORDERED: DOCUSATE SODIUM 100 MG CAPSULE (FP) PO PRN (20:43)
[2023-02-09] MEDS: ROSUVASTATIN CA 5 MG TABLET PO SCH (21:50)
[2023-02-09] MEDS: LATANOPROST 0.005% OPHTH SOLN 2.5ML BOTTLE OU SCH (21:51)
[2023-02-09] MEDS ORDERED: guaiFENesin/D-METHORPHAN TAB.ER.12H PO SCH (22:00)
[2023-02-09 22:15] VITALS: BMI 25.2
[2023-02-09] MEDS: SODIUM CHLORIDE 1 GM TABLET PO SCH (22:42)
[2023-02-10] MEDS: hydrALAZINE HCL 50 MG TABLET (FP) PO SCH ×3 (05:46→21:28)
[2023-02-10] MEDS ORDERED: methylPREDNISolone NA SUCC 1000 MG/8 ML VIAL IVPB SCH (09:30)
[2023-02-10] MEDS: methylPREDNISolone NA SUCC 40 MG/1 ML VIAL IVPB SCH ×2 (09:48→17:24)
[2023-02-10] MEDS: amLODIPine BESYLATE 5 MG TABLET (FP) PO SCH (09:50)
[2023-02-10] MEDS: ASPIRIN COATED 81 MG TABLET.EC PO SCH (09:50)
[2023-02-10] MEDS: FUROSEMIDE 20 MG TABLET (FP) PO SCH (09:50)
[2023-02-10] MEDS: LOSARTAN POTASSIUM 50 MG TABLET PO SCH (09:50)
[2023-02-10] MEDS: HEPARIN NA (PORCINE) 5,000 UNITS/ML 1ML VIAL SQ SCH ×2 (09:51→21:28)
[2023-02-10] MEDS: SODIUM CHLORIDE 1 GM TABLET PO SCH ×2 (09:52→21:28)
[2023-02-10] MEDS: guaiFENesin 200 MG/10 ML 10 ML UNIT-DOSE CUPS PO PRN ×2 (12:10→21:43)
[2023-02-10] MEDS: ROSUVASTATIN CA 5 MG TABLET PO SCH (21:28)
[2023-02-10] MEDS: LATANOPROST 0.005% OPHTH SOLN 2.5ML BOTTLE OU SCH (21:28)
[2023-02-11] MEDS: methylPREDNISolone NA SUCC 40 MG/1 ML VIAL IVPB SCH ×3 (02:37→17:01)
[2023-02-11] MEDS: hydrALAZINE HCL 50 MG TABLET (FP) PO SCH ×3 (06:25→21:39)
[2023-02-11 09:44] LABS: HEMATOCRIT 36.1 % (32.4-45.2); HEMOGLOBIN 12.7 GM/dL (10.7-15.3); MCH 31.4 pg (25.7-33.7); MCHC 35.2 g/dl (32.0-36.0); MEAN CELL VOLUME 89.3 fl (80-96); MEAN PLT VOLUME 7.1 fl (7.5-11.1); PLATELET COUNT 254 10^3/uL (134-434); RBC 4.05 M/mm3 (3.60-5.2); RDW 12.9 % (11.6-15.6); WHITE BLOOD COUNT 6.5 K/mm3 (4.0-10.0)
[2023-02-11] MEDS: guaiFENesin 200 MG/10 ML 10 ML UNIT-DOSE CUPS PO PRN ×3 (10:47→23:10)
[2023-02-11] MEDS: HEPARIN NA (PORCINE) 5,000 UNITS/ML 1ML VIAL SQ SCH ×2 (10:47→21:39)
[2023-02-11] MEDS: amLODIPine BESYLATE 5 MG TABLET (FP) PO SCH (10:49)
[2023-02-11] MEDS: FUROSEMIDE 20 MG TABLET (FP) PO SCH (10:49)
[2023-02-11] MEDS: LOSARTAN POTASSIUM 50 MG TABLET PO SCH (10:49)
[2023-02-11] MEDS: SODIUM CHLORIDE 1 GM TABLET PO SCH ×2 (10:49→21:39)
[2023-02-11] MEDS: ASPIRIN COATED 81 MG TABLET.EC PO SCH (10:49)
[2023-02-11 11:45] LABS: ANISOCYTOSIS 2+; MACROCYTOSIS 2+
[2023-02-11 14:12] LABS: POTASSIUM 4.3 mmol/L (3.5-5.1)
[2023-02-11 14:18] LABS: BLOOD UREA NITROGEN 36.4 mg/dL (7-18); CALCIUM 8.6 mg/dL (8.5-10.1)
[2023-02-11 14:21] LABS: CREATININE 0.9 mg/dL (0.55-1.3)
[2023-02-11 14:23] LABS: BILIRUBIN,TOTAL 0.5 mg/dL (0.2-1); TOT PROT 5.9 g/dl (6.4-8.2)
[2023-02-11] MEDS: ACETAMINOPHEN 325 MG TABLET (FP) PO PRN (19:27)
[2023-02-11] MEDS: ROSUVASTATIN CA 5 MG TABLET PO SCH (21:39)
[2023-02-11] MEDS: LATANOPROST 0.005% OPHTH SOLN 2.5ML BOTTLE OU SCH (21:41)
[2023-02-12] MEDS: methylPREDNISolone NA SUCC 40 MG/1 ML VIAL IVPB SCH ×4 (02:38→20:59)
[2023-02-12] MEDS: hydrALAZINE HCL 50 MG TABLET (FP) PO SCH ×3 (05:06→20:59)
[2023-02-12 08:48] LABS: HEMOGLOBIN 12.2 GM/dL (10.7-15.3); MCH 30.2 pg (25.7-33.7); MCHC 33.1 g/dl (32.0-36.0); MEAN CELL VOLUME 91.4 fl (80-96); MEAN PLT VOLUME 7.1 fl (7.5-11.1); PLATELET COUNT 287 10^3/uL (134-434); RBC 4.05 M/mm3 (3.60-5.2); RDW 13.3 % (11.6-15.6); WHITE BLOOD COUNT 11.3 K/mm3 (4.0-10.0)
[2023-02-12 09:05] LABS: POTASSIUM 4.6 mmol/L (3.5-5.1)
[2023-02-12 09:30] LABS: BLOOD UREA NITROGEN 38.5 mg/dL (7-18); CALCIUM 8.7 mg/dL (8.5-10.1)
[2023-02-12 09:31] LABS: ALBUMIN 2.9 g/dl (3.4-5.0)
[2023-02-12 09:33] LABS: CREATININE 0.9 mg/dL (0.55-1.3)
[2023-02-12 09:35] LABS: BILIRUBIN,TOTAL 0.4 mg/dL (0.2-1); TOT PROT 5.8 g/dl (6.4-8.2)
[2023-02-12] MEDS: HEPARIN NA (PORCINE) 5,000 UNITS/ML 1ML VIAL SQ SCH ×2 (10:19→21:00)
[2023-02-12] MEDS: FUROSEMIDE 20 MG TABLET (FP) PO SCH (10:19)
[2023-02-12] MEDS: ASPIRIN COATED 81 MG TABLET.EC PO SCH (10:19)
[2023-02-12] MEDS: LOSARTAN POTASSIUM 50 MG TABLET PO SCH (10:19)
[2023-02-12] MEDS: amLODIPine BESYLATE 5 MG TABLET (FP) PO SCH (10:19)
[2023-02-12] MEDS: SODIUM CHLORIDE 1 GM TABLET PO SCH ×2 (10:19→21:00)
[2023-02-12] MEDS: guaiFENesin 200 MG/10 ML 10 ML UNIT-DOSE CUPS PO PRN ×2 (10:31→20:59)
[2023-02-12] MEDS: ACETAMINOPHEN 325 MG TABLET (FP) PO PRN ×2 (10:31→21:00)
[2023-02-12 11:07] LABS: ANISOCYTOSIS 0; HELMET CELLS 0; HOWELL-JOLLY BODIES 0; MACROCYTOSIS 0; OVALOCYTE 0; ROULEAU 0; SICKELED CELLS 0; TARGET CELLS 0; TEAR DROP CELLS 0; TOXIC GRANULATION 0
[2023-02-12] MEDS: ROSUVASTATIN CA 5 MG TABLET PO SCH (20:59)
[2023-02-12] MEDS: LATANOPROST 0.005% OPHTH SOLN 2.5ML BOTTLE OU SCH (21:02)
[2023-02-13] MEDS: ACETAMINOPHEN 325 MG TABLET (FP) PO PRN (05:50)
[2023-02-13] MEDS: hydrALAZINE HCL 50 MG TABLET (FP) PO SCH ×2 (05:50→13:59)
[2023-02-13] MEDS: LOSARTAN POTASSIUM 50 MG TABLET PO SCH (10:03)
[2023-02-13] MEDS: ASPIRIN COATED 81 MG TABLET.EC PO SCH (10:03)
[2023-02-13] MEDS: amLODIPine BESYLATE 5 MG TABLET (FP) PO SCH (10:03)
[2023-02-13] MEDS: FUROSEMIDE 20 MG TABLET (FP) PO SCH (10:04)
[2023-02-13] MEDS: HEPARIN NA (PORCINE) 5,000 UNITS/ML 1ML VIAL SQ SCH (10:04)
[2023-02-13] MEDS: SODIUM CHLORIDE 1 GM TABLET PO SCH (10:04)
[2023-02-13] MEDS: methylPREDNISolone NA SUCC 40 MG/1 ML VIAL IVPB SCH (10:04)
[2023-02-13 10:09] LABS: POTASSIUM 4.6 mmol/L (3.5-5.1)
[2023-02-13 10:11] LABS: BLOOD UREA NITROGEN 40.6 mg/dL (7-18); CALCIUM 8.4 mg/dL (8.5-10.1)
[2023-02-13 10:14] LABS: CREATININE 1.1 mg/dL (0.55-1.3)
[2023-02-13 14:14] VITALS: BP 156/75; PULSE 67; RESP 20; TEMP 98.6
[2023-02-13] MEDS: guaiFENesin 200 MG/10 ML 10 ML UNIT-DOSE CUPS PO PRN (15:48)
== END 2023-02-13 16:55 | disposition home or self-care (01) | DRG 291 ==
LOC: JER 00:37 → UNDOADMIN 04:10 → JERBED 04:10 → J7W 02-09 20:18
PROVIDERS: ADMIT Internal Medicine; ATTEND Internal Medicine
DX: I11.0 Hypertensive heart disease with heart failure (principal); I50.33 Acute on chronic diastolic (congestive) heart failure; E87.1 Hypo-osmolality and hyponatremia; J21.0 Acute bronchiolitis due to respiratory syncytial virus; E78.5 Hyperlipidemia, unspecified
CPT/HCPCS: 0241U-QW; 36415; 71045-TC-FY; 80048; 80053; 81003; 82550; 82553; 83735; 83880; 84484; 85025; 85610; 85730; 87086; 93005; 93010; 97116-GP; 97161-GP; 99285-25; J1644

== ENCOUNTER 2023-03-21 02:27 | Inpatient (IN) | payer OTHER ==
[2023-03-21 02:56] VITALS: BMI 24.7
[2023-03-21] MEDS ORDERED: LIDOCAINE 5% TOPICAL PATCH TP ONE (04:03)
[2023-03-21] MEDS ORDERED: LIDOCAINE 4% PATCH TP ONE (04:37)
[2023-03-21 06:03] LABS: BASO % 0.4 % (0-2.0); EOS % 0.7 % (0-4.5); HEMOGLOBIN 11.2 GM/dL (10.7-15.3); LYMPH % 14.4 % (8-40); MCH 31.7 pg (25.7-33.7); MCHC 33.9 g/dl (32.0-36.0); MEAN CELL VOLUME 93.6 fl (80-96); MEAN PLT VOLUME 7.3 fl (7.5-11.1); MONO % 7.8 % (3.8-10.2); NEUT % 76.7 % (42.8-82.8); PLATELET COUNT 295 10^3/uL (134-434); RBC 3.52 M/mm3 (3.60-5.2); RDW 14.2 % (11.6-15.6); WHITE BLOOD COUNT 10.8 K/mm3 (4.0-10.0)
[2023-03-21 06:17] LABS: POTASSIUM 4.2 mmol/L (3.5-5.1)
[2023-03-21 06:19] LABS: CALCIUM 9.5 mg/dL (8.5-10.1)
[2023-03-21 06:20] LABS: ALBUMIN 3.5 g/dl (3.4-5.0); BLOOD UREA NITROGEN 13.2 mg/dL (7-18)
[2023-03-21 06:23] LABS: CREATININE 0.8 mg/dL (0.55-1.3)
[2023-03-21 06:25] LABS: BILIRUBIN,TOTAL 0.4 mg/dL (0.2-1); TOT PROT 6.1 g/dl (6.4-8.2)
[2023-03-21] MEDS ORDERED: hydrALAZINE HCL 25 MG TABLET (FP) PO ONE (06:31)
[2023-03-21] MEDS ORDERED: hydrALAZINE HCL 25 MG TABLET (FP) ONE (06:45)
[2023-03-21 09:13] LABS: INR 0.98 (0.83-1.09); PROTHROMBIN TIME (PATIENT) 11.4 SEC (9.7-13.0)
[2023-03-21] MEDS ORDERED: ACETAMINOPHEN 325 MG TABLET (FP) PO PRN (10:21)
[2023-03-21] MEDS ORDERED: ACETAMINOPHEN 325 MG TABLET (FP) ONE ×2 (11:51→11:53)
[2023-03-21] MEDS ORDERED: FUROSEMIDE 40 MG TABLET (FP) PO ONE (14:30)
[2023-03-21] MEDS ORDERED: FUROSEMIDE 40 MG TABLET (FP) ONE (14:55)
[2023-03-21] MEDS ORDERED: hydrALAZINE HCL 50 MG TABLET (FP) ONE ×2 (14:55→23:29)
[2023-03-21] MEDS: hydrALAZINE HCL 50 MG TABLET (FP) PO SCH ×2 (15:03→23:35)
[2023-03-21] MEDS ORDERED: LATANOPROST 0.005% OPHTH SOLN 2.5ML BOTTLE OU SCH (22:00)
[2023-03-21] MEDS ORDERED: PATIENT'S OWN MEDICATION (NON-FORMULARY) (Brimonidine Tartrate/Timolol [Combigan 0.2%-0.5% OU SCH (22:00)
[2023-03-21] MEDS ORDERED: LIDOCAINE PATCH REMOVAL MC SCH (22:00)
[2023-03-21] MEDS: BRIMONIDINE TARTRATE 0.2% OPHTHALMIC 5 ML BOTTLE OU SCH (23:26)
[2023-03-21] MEDS: prednisoLONE ACETATE 1% OPHTH SUSP 5 ML BOTTLE OD SCH (23:27)
[2023-03-21] MEDS: TIMOLOL 0.5% OPHTHALMIC SOL 5 ML BOTTLE OU SCH (23:27)
[2023-03-21] MEDS ORDERED: HEPARIN NA (PORCINE) 5,000 UNITS/ML 1ML VIAL ONE (23:29)
[2023-03-21] MEDS: SODIUM CHLORIDE 1 GM TABLET PO SCH (23:35)
[2023-03-21] MEDS: HEPARIN NA (PORCINE) 5,000 UNITS/ML 1ML VIAL SQ SCH (23:35)
[2023-03-22 01:56] VITALS: RESP 16
[2023-03-22] MEDS ORDERED: hydrALAZINE HCL 50 MG TABLET (FP) ONE (05:12)
[2023-03-22] MEDS: hydrALAZINE HCL 50 MG TABLET (FP) PO SCH (05:14)
[2023-03-22 09:06] LABS: POTASSIUM 4.2 mmol/L (3.5-5.1)
[2023-03-22 09:11] LABS: BLOOD UREA NITROGEN 22.4 mg/dL (7-18); CALCIUM 8.7 mg/dL (8.5-10.1)
[2023-03-22 09:16] LABS: BILIRUBIN,TOTAL 0.4 mg/dL (0.2-1); TOT PROT 5.7 g/dl (6.4-8.2)
[2023-03-22] MEDS ORDERED: amLODIPine BESYLATE 10 MG TABLET (FP) PO SCH (10:00)
[2023-03-22] MEDS ORDERED: LOSARTAN POTASSIUM 50 MG TABLET PO SCH (10:00)
[2023-03-22] MEDS ORDERED: MAGNESIUM OXIDE 400 MG TABLET (FP) PO SCH (10:00)
[2023-03-22] MEDS ORDERED: FUROSEMIDE 20 MG TABLET (FP) PO SCH ×2 (10:00)
[2023-03-22] MEDS ORDERED: ASPIRIN COATED 81 MG TABLET.EC PO SCH (10:00)
[2023-03-22 10:07] VITALS: BP 147/51; PULSE 64; TEMP 98.2
[2023-03-22] MEDS: HEPARIN NA (PORCINE) 5,000 UNITS/ML 1ML VIAL SQ SCH (10:18)
[2023-03-22] MEDS: SODIUM CHLORIDE 1 GM TABLET PO SCH (10:19)
[2023-03-22] MEDS ORDERED: MAGNESIUM OXIDE 400 MG TABLET (FP) ONE (10:21)
[2023-03-22] MEDS: BRIMONIDINE TARTRATE 0.2% OPHTHALMIC 5 ML BOTTLE OU SCH (10:47)
[2023-03-22] MEDS: TIMOLOL 0.5% OPHTHALMIC SOL 5 ML BOTTLE OU SCH (10:47)
[2023-03-22] MEDS: prednisoLONE ACETATE 1% OPHTH SUSP 5 ML BOTTLE OD SCH (10:47)
[2023-03-22] MEDS ORDERED: ROSUVASTATIN CA 5 MG TABLET PO SCH (22:00)
== END 2023-03-22 12:20 | disposition home or self-care (01) | DRG 641 ==
LOC: JER 02:27 → JERBED 07:49
PROVIDERS: ADMIT Internal Medicine; ATTEND Internal Medicine
DX: E87.1 Hypo-osmolality and hyponatremia (principal); I50.32 Chronic diastolic (congestive) heart failure; I11.0 Hypertensive heart disease with heart failure; E78.5 Hyperlipidemia, unspecified; M54.2 Cervicalgia; F41.9 Anxiety disorder, unspecified; R00.2 Palpitations
CPT/HCPCS: 36415; 71045-TC-FY; 72040-TC; 80048; 80053; 84484; 85025; 85610; 85730; 93005; 93010; 99285-25; J1644

== ENCOUNTER 2023-04-25 17:39 | Emergency (ER) | payer OTHER ==
[2023-04-25 17:50] VITALS: TEMP 98.5; BMI 30.9
[2023-04-25 18:50] LABS: BASO % 0.5 % (0-2.0); EOS % 1.8 % (0-4.5); HEMATOCRIT 35.1 % (32.4-45.2); HEMOGLOBIN 11.8 GM/dL (10.7-15.3); MCH 31.6 pg (25.7-33.7); MCHC 33.7 g/dl (32.0-36.0); MEAN CELL VOLUME 93.9 fl (80-96); MEAN PLT VOLUME 6.8 fl (7.5-11.1); MONO % 10.4 % (3.8-10.2); NEUT % 72.3 % (42.8-82.8); PLATELET COUNT 282 10^3/uL (134-434); RBC 3.74 M/mm3 (3.60-5.2); WHITE BLOOD COUNT 7.6 K/mm3 (4.0-10.0)
[2023-04-25 19:08] LABS: ALBUMIN 3.8 g/dl (3.4-5.0)
[2023-04-25 19:13] LABS: BILIRUBIN,TOTAL 0.3 mg/dL (0.2-1); TOT PROT 6.5 g/dl (6.4-8.2)
[2023-04-25] MEDS ORDERED: LIDOCAINE 4% PATCH TP ONE ×2 (19:15→19:56)
[2023-04-25] MEDS ORDERED: ACETAMINOPHEN INJECTION 100 ML IVPB ONE (19:15)
[2023-04-25] MEDS: ACETAMINOPHEN 1000 MG/100 ML BAG IVPB ONE (19:20)
[2023-04-25] MEDS: LIDOCAINE 4% PATCH TP ONE ×2 (19:20→20:03)
[2023-04-25 19:54] VITALS: BP 127/65; PULSE 72; RESP 18
[2023-04-25] MEDS: hydrALAZINE HCL 50 MG TABLET (FP) PO ONE (19:55)
[2023-04-25] MEDS: SODIUM CHLORIDE 0.9% 500 ML INFUS.BAG IV ONE (20:39)
[2023-04-25] MEDS ORDERED: LIDOCAINE PATCH REMOVAL MC SCH ×2 (22:00)
== END 2023-04-25 21:25 | disposition home or self-care (01) ==
LOC: JER 17:39
PROC: 3E033NZ Introduction of Analgesics, Hypnotics, Sedatives into Peripheral Vein, Percutaneous Approach (ICD-10-PCS; principal; 2023-04-25)
DX: M54.2 Cervicalgia (principal); G89.29 Other chronic pain
CPT/HCPCS: 36415; 71046-TC-FY; 80053; 84484; 85025; 99284-25; J0131

== ENCOUNTER 2023-07-08 20:14 | Emergency (ER) | payer OTHER ==
[2023-07-08 20:21] VITALS: TEMP 98.4; BMI 33.1
[2023-07-08] MEDS ORDERED: diazePAM 2 MG TABLET ONE (21:42)
[2023-07-08] MEDS ORDERED: ACETAMINOPHEN 325 MG TABLET (FP) ONE (21:43)
[2023-07-08] MEDS: diazePAM 2 MG TABLET PO ONE (21:47)
[2023-07-08] MEDS: ACETAMINOPHEN 500 MG TABLET (FP) PO ONE (21:48)
[2023-07-08 22:31] VITALS: BP 178/57; PULSE 59; RESP 15
== END 2023-07-08 23:52 | disposition home or self-care (01) ==
LOC: JER 20:14
DX: G89.29 Other chronic pain (principal); M54.2 Cervicalgia; R20.2 Paresthesia of skin; M47.892 Other spondylosis, cervical region; R20.0 Anesthesia of skin
CPT/HCPCS: 70450-TC; 72125-TC; 99283-25

== ENCOUNTER 2023-07-21 15:57 | Inpatient (IN) | payer OTHER ==
[2023-07-21] MEDS ORDERED: LIDOCAINE 4% PATCH TP ONE (17:16)
[2023-07-21] MEDS ORDERED: IBUPROFEN 600 MG TABLET (FP) PO ONE (17:16)
[2023-07-21] MEDS: IBUPROFEN 600 MG TABLET (FP) PO ONE (17:23)
[2023-07-21] MEDS: LIDOCAINE 5% TOPICAL PATCH TP ONE (17:41)
[2023-07-21] MEDS: LIDOCAINE 4% PATCH TP ONE (17:41)
[2023-07-21 18:35] LABS: BASO % 0.3 % (0-2.0); EOS % 1.2 % (0-4.5); HEMATOCRIT 34.2 % (32.4-45.2); HEMOGLOBIN 11.9 GM/dL (10.7-15.3); LYMPH % 19.6 % (8-40); MCH 31.5 pg (25.7-33.7); MCHC 34.8 g/dl (32.0-36.0); MEAN CELL VOLUME 90.4 fl (80-96); MEAN PLT VOLUME 6.4 fl (7.5-11.1); MONO % 12.7 % (3.8-10.2); NEUT % 66.2 % (42.8-82.8); PLATELET COUNT 263 10^3/uL (134-434); RBC 3.78 M/mm3 (3.60-5.2); RDW 13.1 % (11.6-15.6); WHITE BLOOD COUNT 6.9 K/mm3 (4.0-10.0)
[2023-07-21 19:00] LABS: CHLORIDE 85 mmol/L (98-107); POTASSIUM 4.3 mmol/L (3.5-5.1)
[2023-07-21 19:02] LABS: ALBUMIN 3.3 g/dl (3.4-5.0); CALCIUM 8.5 mg/dL (8.5-10.1); CO2 25 mmol/L (21-32); GLUCOSE,RANDOM 105 mg/dL (74-106)
[2023-07-21 19:03] LABS: BLOOD UREA NITROGEN 18.6 mg/dL (7-18)
[2023-07-21 19:05] LABS: SGPT/ALT 27 U/L (13-61)
[2023-07-21 19:06] LABS: CREATININE 0.8 mg/dL (0.55-1.3); SGOT/AST 27 U/L (15-37)
[2023-07-21 19:07] LABS: BILIRUBIN,TOTAL 0.6 mg/dL (0.2-1); TOT PROT 5.8 g/dl (6.4-8.2)
[2023-07-21 19:09] LABS: ALK PHOS 81 U/L (45-117)
[2023-07-21 19:11] LABS: EPI CELLS 23 /uL (0-25.1); HYALINE CASTS 2 /uL (0-3.1); PH,URINE 5.5 (5.0-8.0); URINE APPEARANCE CLEAR; URINE BACTERIA 61 /uL (0-1359); URINE BILIRUBIN NEGATIVE (NEGATIVE); URINE COLOR YELLOW; URINE GLUCOSE (UA) NEGATIVE (NEGATIVE); URINE KETONE NEGATIVE (NEGATIVE); URINE LEUK ESTERASE NEGATIVE (NEGATIVE); URINE NITRITE NEGATIVE (NEGATIVE); URINE PROTEIN 4+ (NEGATIVE); URINE RBC 19 /uL (0-23.9); URINE UROBILINOGEN 0.2 mg/dL (0.2-1.0); URINE WBC 11 /uL (0-25.8)
[2023-07-21 19:30] LABS: ANION GAP 5 mmol/L (4-13); SODIUM 115 mmol/L (136-145)
[2023-07-21] MEDS: SODIUM CHLORIDE 0.9% 500 ML INFUS.BAG IV ONE (20:12)
[2023-07-21 22:07] LABS: CALCIUM 8.1 mg/dL (8.5-10.1)
[2023-07-21 22:08] LABS: BLOOD UREA NITROGEN 16.5 mg/dL (7-18)
[2023-07-21 22:11] LABS: CREATININE 0.7 mg/dL (0.55-1.3)
[2023-07-22] MEDS: hydrALAZINE HCL 25 MG TABLET (FP) PO SCH (01:31)
[2023-07-22 07:23] LABS: BASO % 0.3 % (0-2.0); EOS % 1.6 % (0-4.5); HEMATOCRIT 33.3 % (32.4-45.2); HEMOGLOBIN 11.6 GM/dL (10.7-15.3); LYMPH % 18.5 % (8-40); MCH 31.8 pg (25.7-33.7); MCHC 34.9 g/dl (32.0-36.0); MEAN CELL VOLUME 90.9 fl (80-96); MONO % 12.8 % (3.8-10.2); NEUT % 66.8 % (42.8-82.8); PLATELET COUNT 241 10^3/uL (134-434); RBC 3.66 M/mm3 (3.60-5.2)
[2023-07-22 07:42] LABS: POTASSIUM 4.2 mmol/L (3.5-5.1)
[2023-07-22 07:50] LABS: CALCIUM 8.4 mg/dL (8.5-10.1)
[2023-07-22 07:54] LABS: CREATININE 0.8 mg/dL (0.55-1.3)
[2023-07-22] MEDS: amLODIPine BESYLATE 5 MG TABLET (FP) PO SCH (09:31)
[2023-07-22] MEDS: ASPIRIN COATED 81 MG TABLET.EC PO SCH (09:31)
[2023-07-22] MEDS: LIDOCAINE 5% TOPICAL PATCH TP SCH (09:31)
[2023-07-22] MEDS: LOSARTAN POTASSIUM 50 MG TABLET PO SCH (09:32)
[2023-07-22] MEDS: ACETAMINOPHEN 325 MG TABLET (FP) PO PRN (11:53)
[2023-07-22] MEDS: guaiFENesin 200 MG/10 ML 10 ML UNIT-DOSE CUPS PO PRN (11:53)
[2023-07-22] MEDS: SODIUM CHLORIDE 500 ML IV STA (14:57)
[2023-07-22] MEDS: ROSUVASTATIN CA 5 MG TABLET PO SCH (21:11)
[2023-07-22] MEDS: LATANOPROST 0.005% OPHTH SOLN 2.5ML BOTTLE OU SCH (21:20)
[2023-07-22] MEDS: LIDOCAINE PATCH REMOVAL MC SCH (21:21)
[2023-07-23] MEDS: hydrALAZINE HCL 10 MG TABLET PO ONE (06:54)
[2023-07-23 07:20] LABS: POTASSIUM 4.5 mmol/L (3.5-5.1)
[2023-07-23 07:22] LABS: BLOOD UREA NITROGEN 21.2 mg/dL (7-18); CALCIUM 8.3 mg/dL (8.5-10.1)
[2023-07-23 07:26] LABS: CREATININE 0.8 mg/dL (0.55-1.3)
[2023-07-23] MEDS: SODIUM CHLORIDE 500 ML IV STA (10:35)
[2023-07-23] MEDS: amLODIPine BESYLATE 5 MG TABLET (FP) PO ONE (13:32)
[2023-07-23] MEDS: HEPARIN NA (PORCINE) 5,000 UNITS/ML 1ML VIAL SQ SCH (21:14)
[2023-07-24] MEDS: hydrALAZINE HCL 25 MG TABLET (FP) PO SCH (06:40)
[2023-07-24 07:35] LABS: POTASSIUM 4.3 mmol/L (3.5-5.1)
[2023-07-24 07:38] LABS: CALCIUM 8.4 mg/dL (8.5-10.1)
[2023-07-24 07:41] LABS: CREATININE 0.7 mg/dL (0.55-1.3)
[2023-07-24] MEDS: METHIMAZOLE 5 MG TABLET PO SCH (09:17)
[2023-07-24] MEDS: amLODIPine BESYLATE 10 MG TABLET (FP) PO SCH (09:17)
[2023-07-24] MEDS: SODIUM CHLORIDE 1 GM TABLET PO ONE (13:23)
[2023-07-24 21:08] VITALS: BMI 32.3
[2023-07-24 23:44] VITALS: RESP 18
[2023-07-24] MEDS: hydrALAZINE HCL 25 MG TABLET (FP) PO ONE (23:57)
[2023-07-25] MEDS: NIFEdipine E.R. 30 MG TABLET PO SCH (11:49)
[2023-07-25] MEDS ORDERED: NIFEdipine E.R 60 MG TABLET PO SCH (13:09)
[2023-07-25] MEDS: FUROSEMIDE 20 MG TABLET (FP) PO ONE (13:54)
[2023-07-25 14:41] VITALS: BP 116/72; PULSE 58; TEMP 97.5
== END 2023-07-25 15:30 | disposition home or self-care (01) | DRG 641 ==
LOC: JER 15:57 → JERBED 22:10 → J4W 07-22 01:26
PROVIDERS: ADMIT Internal Medicine; ATTEND Internal Medicine
DX: E87.1 Hypo-osmolality and hyponatremia (principal); I50.32 Chronic diastolic (congestive) heart failure; I11.0 Hypertensive heart disease with heart failure; E78.5 Hyperlipidemia, unspecified; R80.9 Proteinuria, unspecified; I25.10 Atherosclerotic heart disease of native coronary artery without angina pectoris; D35.00 Benign neoplasm of unspecified adrenal gland
CPT/HCPCS: 0241U-QW; 36415; 71045-TC-FY; 80048; 80053; 81003; 82962; 83735; 84439; 84443; 84484; 85025; 86850; 86900; 86901; 87086; 93005; 93010; 97116-GP; 97162-GP; 99285-25; J1644

== ENCOUNTER 2023-07-26 09:44 | Inpatient (IN) | payer OTHER ==
[2023-07-26] MEDS ORDERED: ACETAMINOPHEN INJECTION 100 ML IVPB ONE (10:19)
[2023-07-26] MEDS: ACETAMINOPHEN 1000 MG/100 ML BAG IVPB ONE (10:54)
[2023-07-26 10:56] LABS: BASO % 0.3 % (0-2.0); EOS % 0.7 % (0-4.5); HEMATOCRIT 35.4 % (32.4-45.2); HEMOGLOBIN 12.5 GM/dL (10.7-15.3); LYMPH % 7.9 % (8-40); MCH 32.3 pg (25.7-33.7); MCHC 35.3 g/dl (32.0-36.0); MEAN CELL VOLUME 91.5 fl (80-96); MEAN PLT VOLUME 7.8 fl (7.5-11.1); MONO % 5.7 % (3.8-10.2); NEUT % 85.4 % (42.8-82.8); PLATELET COUNT 318 10^3/uL (134-434); RBC 3.88 M/mm3 (3.60-5.2); RDW 13.2 % (11.6-15.6); WHITE BLOOD COUNT 8.6 K/mm3 (4.0-10.0)
[2023-07-26 11:19] LABS: POTASSIUM 5.2 mmol/L (3.5-5.1)
[2023-07-26 11:21] LABS: ALBUMIN 3.3 g/dl (3.4-5.0); BLOOD UREA NITROGEN 30.8 mg/dL (7-18); CALCIUM 8.4 mg/dL (8.5-10.1); MAGNESIUM 2.1 mg/dL (1.8-2.4)
[2023-07-26 11:24] LABS: CREATININE 1.1 mg/dL (0.55-1.3)
[2023-07-26 11:25] LABS: BILIRUBIN,TOTAL 0.5 mg/dL (0.2-1); TOT PROT 6.5 g/dl (6.4-8.2)
[2023-07-26] MEDS: SODIUM CHLORIDE 0.9% 500 ML INFUS.BAG IV ONE (13:58)
[2023-07-26 14:34] LABS: EPI CELLS 5 /uL (0-25.1); HYALINE CASTS 1 /uL (0-3.1); URINE APPEARANCE CLEAR; URINE BACTERIA 1 /uL (0-1359); URINE BILIRUBIN NEGATIVE (NEGATIVE); URINE COLOR YELLOW; URINE GLUCOSE (UA) NEGATIVE (NEGATIVE); URINE KETONE NEGATIVE (NEGATIVE); URINE LEUK ESTERASE NEGATIVE (NEGATIVE); URINE NITRITE NEGATIVE (NEGATIVE); URINE PROTEIN 3+ (NEGATIVE); URINE RBC 3 /uL (0-23.9); URINE UROBILINOGEN 0.2 mg/dL (0.2-1.0); URINE WBC 4 /uL (0-25.8)
[2023-07-26] MEDS: LIDOCAINE 4% PATCH TP ONE (14:36)
[2023-07-26] MEDS ORDERED: LIDOCAINE 5% TOPICAL PATCH ONE (14:37)
[2023-07-26] MEDS ORDERED: FUROSEMIDE 40 MG TABLET (FP) ONE (15:57)
[2023-07-26 16:01] LABS: CALCIUM 8.6 mg/dL (8.5-10.1)
[2023-07-26 16:02] LABS: BLOOD UREA NITROGEN 25.9 mg/dL (7-18)
[2023-07-26] MEDS: FUROSEMIDE 40 MG TABLET (FP) PO ONE (16:04)
[2023-07-26 16:05] LABS: CREATININE 1.1 mg/dL (0.55-1.3)
[2023-07-26] MEDS: SODIUM CHLORIDE 1 GM TABLET PO ONE (16:45)
[2023-07-26] MEDS ORDERED: guaiFENesin/CODEINE 10 ML UNIT-DOSE CUPS ONE (17:06)
[2023-07-26] MEDS: guaiFENesin/CODEINE 10 ML UNIT-DOSE CUPS PO ONE (17:10)
[2023-07-26 20:55] VITALS: BMI 31.6
[2023-07-26] MEDS ORDERED: PATIENT'S OWN MEDICATION (NON-FORMULARY) (Brimonidine Tartrate/Timolol [Combigan 0.2%-0.5% OU SCH (22:00)
[2023-07-26] MEDS: hydrALAZINE HCL 50 MG TABLET (FP) PO SCH (22:17)
[2023-07-26] MEDS: SODIUM CHLORIDE 1 GM TABLET PO SCH (22:17)
[2023-07-26] MEDS: LIDOCAINE PATCH REMOVAL MC ONE (22:19)
[2023-07-26] MEDS: BRIMONIDINE TARTRATE 0.2% OPHTHALMIC 5 ML BOTTLE OU SCH (22:22)
[2023-07-26] MEDS: TIMOLOL 0.5% OPHTHALMIC SOL 5 ML BOTTLE OU SCH (22:22)
[2023-07-26] MEDS: prednisoLONE ACETATE 1% OPHTH SUSP 5 ML BOTTLE OD SCH (22:22)
[2023-07-26] MEDS: LATANOPROST 0.005% OPHTH SOLN 2.5ML BOTTLE OU SCH (22:22)
[2023-07-27 07:59] LABS: BASO % 0.4 % (0-2.0); EOS % 2.3 % (0-4.5); HEMATOCRIT 32.6 % (32.4-45.2); HEMOGLOBIN 11.3 GM/dL (10.7-15.3); LYMPH % 16.1 % (8-40); MCH 31.9 pg (25.7-33.7); MCHC 34.5 g/dl (32.0-36.0); MEAN CELL VOLUME 92.4 fl (80-96); MEAN PLT VOLUME 6.7 fl (7.5-11.1); MONO % 8.9 % (3.8-10.2); NEUT % 72.3 % (42.8-82.8); PLATELET COUNT 246 10^3/uL (134-434); RBC 3.53 M/mm3 (3.60-5.2); RDW 13.2 % (11.6-15.6); WHITE BLOOD COUNT 5.5 K/mm3 (4.0-10.0)
[2023-07-27 08:08] LABS: POTASSIUM 4.4 mmol/L (3.5-5.1)
[2023-07-27 08:12] LABS: CALCIUM 8.5 mg/dL (8.5-10.1)
[2023-07-27 08:13] LABS: BLOOD UREA NITROGEN 21.8 mg/dL (7-18)
[2023-07-27 08:14] LABS: ALBUMIN 2.9 g/dl (3.4-5.0)
[2023-07-27 08:15] LABS: CREATININE 0.8 mg/dL (0.55-1.3)
[2023-07-27 08:17] LABS: BILIRUBIN,TOTAL 0.5 mg/dL (0.2-1); TOT PROT 5.3 g/dl (6.4-8.2)
[2023-07-27] MEDS ORDERED: NIFEdipine E.R. 30 MG TABLET PO SCH (10:00)
[2023-07-27] MEDS: ASPIRIN COATED 81 MG TABLET.EC PO SCH (10:20)
[2023-07-27] MEDS: ENOXAPARIN NA (PORCINE) 40 MG/0.4 ML DISP.SYRIN SQ SCH (10:20)
[2023-07-27] MEDS: NIFEdipine E.R. 30 MG TABLET PO ONE (10:21)
[2023-07-27] MEDS: LOSARTAN POTASSIUM 50 MG TABLET PO SCH (10:22)
[2023-07-27] MEDS: METHIMAZOLE 5 MG TABLET PO SCH (10:24)
[2023-07-27] MEDS: NIFEdipine E.R. 30 MG TABLET PO SCH (11:00)
[2023-07-27 14:59] VITALS: RESP 18
[2023-07-27] MEDS: FUROSEMIDE 20 MG TABLET (FP) PO SCH (15:24)
[2023-07-27] MEDS: ROSUVASTATIN CA 5 MG TABLET PO SCH (21:23)
[2023-07-28 06:03] VITALS: TEMP 97.8
[2023-07-28 08:05] LABS: BASO % 0.2 % (0-2.0); EOS % 1.6 % (0-4.5); HEMATOCRIT 32.2 % (32.4-45.2); HEMOGLOBIN 11.1 GM/dL (10.7-15.3); LYMPH % 19.7 % (8-40); MCH 31.7 pg (25.7-33.7); MCHC 34.4 g/dl (32.0-36.0); MEAN CELL VOLUME 92.3 fl (80-96); MEAN PLT VOLUME 6.7 fl (7.5-11.1); MONO % 7.8 % (3.8-10.2); NEUT % 70.7 % (42.8-82.8); PLATELET COUNT 231 10^3/uL (134-434); RBC 3.49 M/mm3 (3.60-5.2); RDW 13.2 % (11.6-15.6); WHITE BLOOD COUNT 6.5 K/mm3 (4.0-10.0)
[2023-07-28 08:17] LABS: POTASSIUM 4.3 mmol/L (3.5-5.1)
[2023-07-28 08:34] LABS: ALBUMIN 2.9 g/dl (3.4-5.0)
[2023-07-28 08:35] LABS: CALCIUM 8.2 mg/dL (8.5-10.1)
[2023-07-28 08:36] LABS: BLOOD UREA NITROGEN 33.5 mg/dL (7-18); TOT PROT 5.4 g/dl (6.4-8.2)
[2023-07-28 08:39] LABS: CREATININE 0.9 mg/dL (0.55-1.3)
[2023-07-28 08:43] LABS: BILIRUBIN,TOTAL 0.5 mg/dL (0.2-1)
[2023-07-28] MEDS: NIFEdipine E.R. 30 MG TABLET PO SCH (09:28)
[2023-07-28] MEDS: POLYETHYLENE GLYCOL (HEALTHYLAX) 3350 17 GM PACKET PO SCH (09:28)
[2023-07-28] MEDS: SODIUM CHLORIDE 1 GM TABLET PO SCH (09:29)
[2023-07-28] MEDS: ACETAMINOPHEN 325 MG TABLET (FP) PO PRN (09:29)
[2023-07-28 14:32] VITALS: BP 162/61; PULSE 70
== END 2023-07-28 14:40 | DRG 641 ==
LOC: JER 09:44 → JERBED 13:52 → J4W 19:23
PROVIDERS: ADMIT Internal Medicine; ATTEND Internal Medicine
DX: E87.1 Hypo-osmolality and hyponatremia (principal); E78.5 Hyperlipidemia, unspecified; I25.10 Atherosclerotic heart disease of native coronary artery without angina pectoris; E05.90 Thyrotoxicosis, unspecified without thyrotoxic crisis or storm; R55 Syncope and collapse; K57.90 Diverticulosis of intestine, part unspecified, without perforation or abscess without bleeding; Z91.199 Patient's noncompliance with other medical treatment and regimen due to unspecified reason; F41.9 Anxiety disorder, unspecified; H91.93 Unspecified hearing loss, bilateral; D35.00 Benign neoplasm of unspecified adrenal gland; I11.0 Hypertensive heart disease with heart failure; I50.9 Heart failure, unspecified
CPT/HCPCS: 0241U-QW; 36415; 80048; 80053; 81003; 82088; 82533; 82570; 83605; 83735; 83930; 83935; 84300; 84439; 84443; 84484; 85025; 87086; 93005; 93010; 97116-GP; 97161-GP; 99285-25; J0131